=== PATIENT | female | born 1940 | race Caucasian/White ===

== ENCOUNTER 2018-05-19 14:34 | Inpatient (IN) | payer MEDICARE, OTHER, MEDICAID ==
[~2018-05-19] VITALS: Ht 149.9 cm; Wt 59.8 kg
[~2018-05-19 14:34] MED LIST: CEFAZOLIN 1,000 MG ONE; DEXAMETHASONE 4 MG/ML, 1ML ONE; ONDANSETRON 2MG/ML, 2ML ONE; PHENYLEPHRINE 10 MG/ML ONE; PROPOFOL 10 MG/ML, 20ML ONE; SUCCINYLCHOLINE 20 MG/ML, 10ML ONE
[2018-05-19] MEDS ORDERED: MORPHINE SULFATE 4 MG/ML, 1ML ONE ×2 (15:20→16:26)
[2018-05-19] MEDS ORDERED: ONDANSETRON 2MG/ML, 2ML ONE (15:20)
[2018-05-19] MEDS: MORPHINE SULFATE 4 MG/ML, 1ML IVPush PRN ×2 (15:22→16:28)
[2018-05-19] MEDS ORDERED: ONDANSETRON 2MG/ML, 2ML IVPush ONE (15:30)
[2018-05-19] MEDS ORDERED: BISM262T9 PO (16:56)
[2018-05-19] MEDS ORDERED: SITA50TA PO (16:56)
[2018-05-19] MEDS ORDERED: NIFE30TA15 PO (16:56)
[2018-05-19] MEDS ORDERED: FURO20TA3 PO (16:56)
[2018-05-19] MEDS ORDERED: LEVO88TA4 PO (16:56)
[2018-05-19] MEDS ORDERED: OXYC-307 PO (16:56)
[2018-05-19] MEDS ORDERED: LOSA1TAB19 PO (16:56)
[2018-05-19] MEDS ORDERED: DOCU-131 PO (16:56)
[2018-05-19] MEDS ORDERED: FLUT50DI NS (16:56)
[2018-05-19] MEDS ORDERED: LOSA1TAB2 PO (16:56)
[2018-05-19] MEDS ORDERED: DULO60CA55 PO (16:56)
[2018-05-19] MEDS ORDERED: ARIP5TAB13 PO (16:56)
[2018-05-19] MEDS ORDERED: BUDE10.2 PO (16:56)
[2018-05-19] MEDS ORDERED: TIOT18CA INH (16:56)
[2018-05-19] MEDS ORDERED: MAGN400O7 PO (16:56)
[2018-05-19] MEDS ORDERED: LAMO200T49 PO (16:56)
[2018-05-19] MEDS ORDERED: NA P133E2 PR (17:02)
[2018-05-19] MEDS ORDERED: DICL100G19 TP ×2 (17:02→17:06)
[2018-05-19] MEDS ORDERED: CHOL10003 PO (17:02)
[2018-05-19] MEDS ORDERED: CALC200T3 PO (17:02)
[2018-05-19] MEDS ORDERED: HYDROmorphone 2 MG/ML, 1ML ONE ×2 (18:03→21:38)
[2018-05-19] MEDS: HYDROmorphone 2 MG/ML, 1ML IVPush PRN ×2 (18:16→21:47)
[2018-05-19 19:20] LABS: BASOPHILS # (AUTO) 0.06 x10^3/uL (0-0.1); BASOPHILS % (AUTO) 0 % (0-1); EOSINOPHILS # (AUTO) 0.07 x10^3/uL (0-0.4); EOSINOPHILS % (AUTO) 0 % (1-7); LYMPHOCYTES % (AUTO) 10 % (22-44); MD NO; MEAN CORPUSCULAR HEMOGLOBIN 30.7 pg (27.0-34.8); MEAN CORPUSCULAR HGB CONC 33.4 g/dL (32.4-35.8); MEAN PLATELET VOLUME 6.9 fL (7.4-10.4); MONOCYTES # (AUTO) 0.77 x10^3/uL (0.2-0.8); MONOCYTES % (AUTO) 5 % (2-9); NEUTROPHILS # (AUTO) 14.28 x10^3/uL (1.8-6.8); NEUTROPHILS % (AUTO) 85 % (42-75); PLATELET COUNT 355 x10^3/uL (130-400); RED CELL DISTRIBUTION WIDTH 15.1 % (9.6-15.2)
[2018-05-19 19:29] LABS: INTERNATIONAL NORMALIZED RATIO 0.98 (0.93-1.1); PROTHROMBIN TIME 10.1 Seconds (9.6-11.5)
[2018-05-19] MEDS ORDERED: ACETAMINOPHEN 325 MG TABLET PO PRN ×2 (19:30→21:00)
[2018-05-19] MEDS ORDERED: ONDANSETRON 2MG/ML, 2ML IVPush PRN (19:30)
[2018-05-19] MEDS ORDERED: ONDANSETRON ODT 4 MG PO PRN (19:30)
[2018-05-19] MEDS ORDERED: morphine SULFATE 10 MG/ML, 1ML IVPush PRN (19:30)
[2018-05-19] MEDS ORDERED: hydrALAzine 20 MG/ML, 1ML IVPush PRN (19:30)
[2018-05-19 19:32] LABS: ALBUMIN 3.5 g/dL (3.4-5.0); ANION GAP 8 mmol/L (5-15); CHLORIDE 102 mmol/L (98-107)
[2018-05-19 19:36] LABS: TROPONIN I < 0.015 ng/mL (0.000-0.045)
[2018-05-19] MEDS ORDERED: FENTANYL PF 250 MCG/5ML ONE (20:24)
[2018-05-19] MEDS ORDERED: MIDAZOLAM 1 MG/ML, 2ML ONE (20:24)
[2018-05-19] MEDS ORDERED: CEFAZOLIN PMX 2GM/50ML 50 ML IV SCH (20:30)
[2018-05-19] MEDS ORDERED: HALOPERIDOL 5 MG/ML IV PRN (21:00)
[2018-05-19] MEDS ORDERED: hydrALAzine 20 MG/ML, 1ML IV PRN (21:00)
[2018-05-19] MEDS ORDERED: MEPERIDINE/PF 25MG/0.5ML IVPush PRN (21:00)
[2018-05-19] MEDS ORDERED: OXYcodone 5 MG/5 ML ORAL.SOL UDC PO PRN (21:00)
[2018-05-19] MEDS ORDERED: ALBUTEROL/IPRATROPIUM 2.5MG/0.5MG, 3 ML NPPB PRN ×2 (21:00→23:30)
[2018-05-19] MEDS ORDERED: FENTANYL PF 100 MCG/2ML ONE (21:23)
[2018-05-19] MEDS ORDERED: OXYcodone 5 MG/5 ML ORAL.SOL UDC ONE (21:24)
[2018-05-19] MEDS: FENTANYL PF 100 MCG/2ML IV PRN ×2 (21:27→21:33)
[2018-05-19] MEDS: LABETALOL 5MG/ML, 20ML IV PRN ×2 (21:32→21:51)
[2018-05-19] MEDS: HYDROmorphone 1 MG/ML, 1ML IV PRN ×2 (21:40→21:47)
[2018-05-19] MEDS ORDERED: IPRATROPIUM 0.5 MG/2.5 ML INHA ONE (22:58)
[2018-05-19] MEDS ORDERED: ALBUTEROL/IPRATROPIUM 2.5MG/0.5MG, 3 ML ONE (23:01)
[2018-05-20] MEDS: SODIUM CHLORIDE 0.9% 1,000 ML IV SCH ×2 (01:13→07:40)
[2018-05-20] MEDS: DULOXETINE 30 MG CAPSULE.DR PO SCH ×3 (01:14→20:34)
[2018-05-20] MEDS: LAMOTRIGINE 200 MG TABLET PO SCH ×3 (01:14→20:34)
[2018-05-20] MEDS: CALCIUM CARBONATE 500 MG TAB.CHEW PO SCH ×3 (01:14→20:32)
[2018-05-20] MEDS: DOCUSATE 100 MG CAPSULE PO SCH ×3 (01:14→20:33)
[2018-05-20] MEDS: INSULIN LISPRO 100 UNITS/ML, PEN SQ-INSULIN SCH ×5 (01:14→20:15)
[2018-05-20] MEDS: FLUTICASONE NASAL SPRAY 16GM NAS SCH ×3 (01:15→21:00)
[2018-05-20] MEDS: ALBUTEROL/IPRATROPIUM 2.5MG/0.5MG, 3 ML NPPB SCH ×4 (03:00→20:48)
[2018-05-20] MEDS: OXYcodone/APAP 10/325MG TABLET PO PRN ×4 (03:39→20:32)
[2018-05-20 04:15] LABS: MICROSCOPIC AUTO
[2018-05-20 04:16] LABS: CULTURE INDICATED? YES
[2018-05-20 04:17] VITALS: BP 135/57
[2018-05-20] MEDS: CEFAZOLIN PMX 2GM/50ML 50 ML IV SCH ×2 (04:46→12:07)
[2018-05-20 05:39] LABS: BASOPHILS # (AUTO) 0.02 x10^3/uL (0-0.1); BASOPHILS % (AUTO) 0 % (0-1); EOSINOPHILS % (AUTO) 0 % (1-7); LYMPHOCYTES # (AUTO) 0.48 x10^3/uL (1-3.4); LYMPHOCYTES % (AUTO) 4 % (22-44); MD NO; MEAN CORPUSCULAR HEMOGLOBIN 30.7 pg (27.0-34.8); MEAN CORPUSCULAR HGB CONC 33.4 g/dL (32.4-35.8); MEAN CORPUSCULAR VOLUME 91.9 fL (80-100); MEAN PLATELET VOLUME 8.1 fL (7.4-10.4); MONOCYTES % (AUTO) 2 % (2-9); NEUTROPHILS # (AUTO) 10.11 x10^3/uL (1.8-6.8); NEUTROPHILS % (AUTO) 94 % (42-75); PLATELET COUNT 279 x10^3/uL (130-400); RED BLOOD COUNT 3.71 x10^6/uL (3.82-5.3); RED CELL DISTRIBUTION WIDTH 15.1 % (9.6-15.2)
[2018-05-20 05:46] LABS: ANION GAP 8 mmol/L (5-15); CALCIUM 8.1 mg/dL (8.5-10.1); CHLORIDE 104 mmol/L (98-107)
[2018-05-20 05:48] LABS: CREATININE 1.11 mg/dL (0.55-1.02)
[2018-05-20] MEDS: LEVOTHYROXINE 88 MCG TABLET PO SCH ×2 (06:31→08:19)
[2018-05-20] MEDS: POLYETHYLENE GLYCOL 17 GM PACKET PO SCH (08:07)
[2018-05-20] MEDS: CHOLECALCIFEROL 1,000 UNIT TABLET PO SCH (08:14)
[2018-05-20 08:15] VITALS: BP 133/61
[2018-05-20] MEDS: LOSARTAN 50MG TABLET PO SCH (08:16)
[2018-05-20] MEDS: FUROSEMIDE 20 MG TABLET PO SCH (08:17)
[2018-05-20] MEDS: niFEDipine ER 30 MG TABLET.ER PO SCH (08:19)
[2018-05-20] MEDS: ARIPIPRAZOLE 5 MG TABLET PO SCH ×2 (08:22→20:42)
[2018-05-20] MEDS: ASPIRIN 81 MG TABLET CHEW PO SCH ×2 (08:32→20:33)
[2018-05-20] MEDS ORDERED: IPRATROPIUM 0.5 MG/2.5 ML INHA HHN SCH (09:00)
[2018-05-20] MEDS: FLUTICASONE/VILANTEROL 200-25MCG/INH INH SCH (09:00)
[2018-05-20] MEDS ORDERED: SITAGLIPTIN 25MG TABLET PO SCH (09:00)
[2018-05-20] MEDS ORDERED: HYDROCHLOROTHIAZIDE 12.5 MG CAPSULE PO SCH (09:00)
[2018-05-20] MEDS ORDERED: LEVOTHYROXINE 88 MCG TABLET PO SCH (09:00)
[2018-05-20] MEDS: METHOCARBAMOL 500 MG TABLET PO PRN (16:52)
[2018-05-20 20:29] VITALS: BP 145/66
[2018-05-21 02:25] VITALS: BP 147/66
[2018-05-21] MEDS: METHOCARBAMOL 500 MG TABLET PO PRN ×2 (02:25→11:23)
[2018-05-21] MEDS: OXYcodone/APAP 10/325MG TABLET PO PRN ×4 (02:25→15:17)
[2018-05-21 05:33] LABS: BASOPHILS # (AUTO) 0.04 x10^3/uL (0-0.1); BASOPHILS % (AUTO) 0 % (0-1); EOSINOPHILS # (AUTO) 0.18 x10^3/uL (0-0.4); EOSINOPHILS % (AUTO) 2 % (1-7); LYMPHOCYTES # (AUTO) 1.32 x10^3/uL (1-3.4); LYMPHOCYTES % (AUTO) 14 % (22-44); MD NO; MEAN CORPUSCULAR HEMOGLOBIN 30.9 pg (27.0-34.8); MEAN CORPUSCULAR HGB CONC 33.3 g/dL (32.4-35.8); MEAN CORPUSCULAR VOLUME 92.8 fL (80-100); MEAN PLATELET VOLUME 7.4 fL (7.4-10.4); MONOCYTES # (AUTO) 0.62 x10^3/uL (0.2-0.8); MONOCYTES % (AUTO) 6 % (2-9); NEUTROPHILS % (AUTO) 78 % (42-75); PLATELET COUNT 318 x10^3/uL (130-400); RED BLOOD COUNT 3.67 x10^6/uL (3.82-5.3); RED CELL DISTRIBUTION WIDTH 15.1 % (9.6-15.2)
[2018-05-21 05:40] LABS: ALBUMIN 2.9 g/dL (3.4-5.0); ANION GAP 7 mmol/L (5-15); CALCIUM 8.6 mg/dL (8.5-10.1); CHLORIDE 107 mmol/L (98-107)
[2018-05-21] MEDS: INSULIN LISPRO 100 UNITS/ML, PEN SQ-INSULIN SCH ×3 (07:00→16:00)
[2018-05-21 07:32] VITALS: BP 161/71
[2018-05-21] MEDS ORDERED: niFEDipine ER 90 MG TAB.ER.24 ONE (08:54)
[2018-05-21] MEDS: DULOXETINE 30 MG CAPSULE.DR PO SCH ×2 (08:59→23:59)
[2018-05-21] MEDS: FLUTICASONE/VILANTEROL 200-25MCG/INH INH SCH (09:00)
[2018-05-21] MEDS: LINAGLIPTIN 5 MG TAB PO SCH (09:00)
[2018-05-21] MEDS: FLUTICASONE NASAL SPRAY 16GM NAS SCH ×2 (09:00→21:00)
[2018-05-21] MEDS: DOCUSATE 100 MG CAPSULE PO SCH ×2 (09:00→23:58)
[2018-05-21] MEDS: FUROSEMIDE 20 MG TABLET PO SCH (09:01)
[2018-05-21] MEDS: LEVOTHYROXINE 88 MCG TABLET PO SCH (09:02)
[2018-05-21] MEDS: LAMOTRIGINE 200 MG TABLET PO SCH ×2 (09:02→23:58)
[2018-05-21] MEDS: ASPIRIN 81 MG TABLET CHEW PO SCH ×2 (09:05→23:59)
[2018-05-21] MEDS: LOSARTAN 50MG TABLET PO SCH (09:06)
[2018-05-21] MEDS: CHOLECALCIFEROL 1,000 UNIT TABLET PO SCH (09:06)
[2018-05-21] MEDS: CALCIUM CARBONATE 500 MG TAB.CHEW PO SCH ×2 (09:07→23:58)
[2018-05-21] MEDS: POLYETHYLENE GLYCOL 17 GM PACKET PO SCH (09:08)
[2018-05-21] MEDS: niFEDipine ER 30 MG TABLET.ER PO SCH (09:09)
[2018-05-21] MEDS: ALBUTEROL/IPRATROPIUM 2.5MG/0.5MG, 3 ML NPPB SCH ×3 (09:50→19:41)
[2018-05-21 12:48] VITALS: BP 127/70
[2018-05-21 18:42] VITALS: BP 122/67
[2018-05-21] MEDS ORDERED: ATORVASTATIN 20 MG TABLET PO SCH (21:00)
[2018-05-22] MEDS: ARIPIPRAZOLE 5 MG TABLET PO SCH (00:12)
[2018-05-22] MEDS: INSULIN LISPRO 100 UNITS/ML, PEN SQ-INSULIN SCH ×4 (00:13→16:00)
[2018-05-22] MEDS: OXYcodone/APAP 10/325MG TABLET PO PRN ×4 (00:46→17:21)
[2018-05-22] MEDS: METHOCARBAMOL 500 MG TABLET PO PRN (00:46)
[2018-05-22] MEDS: ALBUTEROL/IPRATROPIUM 2.5MG/0.5MG, 3 ML NPPB SCH ×3 (02:41→15:20)
[2018-05-22] MEDS: LEVOTHYROXINE 88 MCG TABLET PO SCH (06:40)
[2018-05-22] MEDS ORDERED: ATOR20TA9 PO (07:20)
[2018-05-22] MEDS ORDERED: ASPI-515 PO (07:20)
[2018-05-22 07:37] VITALS: BP 150/71
[2018-05-22] MEDS: DULOXETINE 30 MG CAPSULE.DR PO SCH (08:31)
[2018-05-22] MEDS: LOSARTAN 50MG TABLET PO SCH (08:31)
[2018-05-22] MEDS: FLUTICASONE/VILANTEROL 200-25MCG/INH INH SCH (08:31)
[2018-05-22] MEDS: DOCUSATE 100 MG CAPSULE PO SCH (08:31)
[2018-05-22] MEDS: FLUTICASONE NASAL SPRAY 16GM NAS SCH (08:31)
[2018-05-22] MEDS: ASPIRIN 81 MG TABLET CHEW PO SCH (08:31)
[2018-05-22] MEDS: POLYETHYLENE GLYCOL 17 GM PACKET PO SCH (08:32)
[2018-05-22] MEDS: LAMOTRIGINE 200 MG TABLET PO SCH (08:32)
[2018-05-22] MEDS: FUROSEMIDE 20 MG TABLET PO SCH (08:32)
[2018-05-22] MEDS: LINAGLIPTIN 5 MG TAB PO SCH (08:33)
[2018-05-22] MEDS: CHOLECALCIFEROL 1,000 UNIT TABLET PO SCH (08:33)
[2018-05-22] MEDS: CALCIUM CARBONATE 500 MG TAB.CHEW PO SCH (08:33)
[2018-05-22] MEDS: niFEDipine ER 30 MG TABLET.ER PO SCH (08:33)
[2018-05-22] MEDS ORDERED: TRAM50TA2 PO (09:04)
[2018-05-22] MEDS ORDERED: OXYC5CAP2 PO (09:04)
[2018-05-22] MEDS ORDERED: BISACODYL 10 MG SUPP PR PRN (10:00)
[2018-05-22] MEDS ORDERED: MAGNESIUM HYDROXIDE 8%, 30ML UDC PO PRN (10:00)
[2018-05-22 12:52] VITALS: BP 115/64
== END 2018-05-22 17:36 | DRG 481 ==
LOC: SUATTDRO 19:09 → ED 19:39 → EDIP 20:00 → 4NOR 22:43
PROVIDERS: ADMIT Hospitalist; ATTEND Hospitalist
PROC: 0QH634Z Insertion of Internal Fixation Device into Right Upper Femur, Percutaneous Approach (ICD-10-PCS; principal; 2018-05-19 20:30)
DX: S72.011A Unspecified intracapsular fracture of right femur, initial encounter for closed fracture (principal); R71.0 Precipitous drop in hematocrit; E78.5 Hyperlipidemia, unspecified; E11.51 Type 2 diabetes mellitus with diabetic peripheral angiopathy without gangrene; Z66 Do not resuscitate; M41.9 Scoliosis, unspecified; I25.10 Atherosclerotic heart disease of native coronary artery without angina pectoris; G89.29 Other chronic pain; E03.9 Hypothyroidism, unspecified; J44.9 Chronic obstructive pulmonary disease, unspecified; I10 Essential (primary) hypertension; F41.9 Anxiety disorder, unspecified; F32.9 Major depressive disorder, single episode, unspecified; W01.0XXA Fall on same level from slipping, tripping and stumbling without subsequent striking against object, initial encounter; E78.00 Pure hypercholesterolemia, unspecified; Z88.8 Allergy status to other drugs, medicaments and biological substances; Z95.1 Presence of aortocoronary bypass graft; Z90.710 Acquired absence of both cervix and uterus; Z90.2 Acquired absence of lung [part of]; Z79.82 Long term (current) use of aspirin; Z85.118 Personal history of other malignant neoplasm of bronchus and lung; Z88.5 Allergy status to narcotic agent; Z88.2 Allergy status to sulfonamides; Z91.040 Latex allergy status; Y93.89 Activity, other specified; Y99.8 Other external cause status; Y92.129 Unspecified place in nursing home as the place of occurrence of the external cause; Z79.899 Other long term (current) drug therapy
CPT/HCPCS: 36415; 71045; 72110; 76000; 80048; 81001; 82040; 82962; 83735; 84100; 84484; 85025; 85610; 85730; 87086; 90656; 93005; 94640; 96374; C1713; G0378; J0690; J1100; J1170; J2250; J2405; J2704; J3010; J7620; J0330; J1815; J2370; J7030

== ENCOUNTER 2018-07-21 11:46 | Inpatient (IN) | payer MEDICARE, OTHER, MEDICAID ==
[~2018-07-21] VITALS: Ht 149.9 cm; Wt 53.0 kg
[~2018-07-21 11:46] MED LIST changes: +ARIP5TAB13 PO; +ASPI-515 PO; +ATOR20TA37 PO; +BISM262T9 PO; +BUDE10.2 PO; +CALC200T3 PO; -CEFAZOLIN 1,000 MG ONE; +CHOL10003 PO; -DEXAMETHASONE 4 MG/ML, 1ML ONE; +DICL100G19 TP; +DOCU-131 PO; +DULO60CA55 PO; +FLUT50DI NS; +FURO20TA3 PO; +LAMO200T49 PO; +LEVO88TA4 PO; +LOSA1TAB19 PO; +LOSA1TAB2 PO; +MAGN400O7 PO; +NA P133E2 PR; +NIFE30TA15 PO; -ONDANSETRON 2MG/ML, 2ML ONE; +OXYC-307 PO; +OXYC5CAP2 PO; -PHENYLEPHRINE 10 MG/ML ONE; -PROPOFOL 10 MG/ML, 20ML ONE; +SITA50TA PO; -SUCCINYLCHOLINE 20 MG/ML, 10ML ONE; +TIOT18CA INH; +TRAM50TA2 PO
--- NOTE | 2018-07-21 11:50 | NUR ---
PT BIB [facility] FROM [facility] FOR ABD PAIN X5 DAYS AND CONSTIPATION X3. IV IN PLACE ON ARRIVAL, 4 ZOFRAN AND 500ML NS GIVEN IN ROUTE. CONNECTED TO ALL MONITORING, TACHY HR 102, RAPID RESP RATE WITH SATS 79% ON RA, O2 APPLIED, SLIGHT HTN. PT A&OX4, DROWSY. MD TO BEDSIDE, CALL LIGHT WITHIN REACH. AWAITING ORDERS AT THIS TIME
--- NOTE | 2018-07-21 12:19 | NUR ---
[facility] L[facility] UA COLLECTED AND SENT TO LAB. LABS COLLECTED. AWAITING RAD AND RESULTS AT THIS TIME. CALL LIGHT WITHIN REACH
[2018-07-21 12:27] LABS: MEAN CORPUSCULAR HEMOGLOBIN 29.6 pg (27.0-34.8); MEAN CORPUSCULAR VOLUME 89.7 fL (80-100); MEAN PLATELET VOLUME 9.3 fL (7.4-10.4); PLATELET COUNT 490 x10^3/uL (130-400); RED BLOOD COUNT 4.45 x10^6/uL (3.82-5.3)
--- NOTE | 2018-07-21 12:34 | NUR ---
PT TAKEN TO RAD
[2018-07-21 12:36] LABS: CHLORIDE 88 mmol/L (98-107)
[2018-07-21 12:37] LABS: TROPONIN I < 0.015 ng/mL (0.000-0.045)
[2018-07-21 12:38] LABS: INTERNATIONAL NORMALIZED RATIO 0.99 (0.93-1.1); PROTHROMBIN TIME 10.5 Seconds (9.6-11.5)
[2018-07-21 12:45] LABS: MICROSCOPIC AUTO
[2018-07-21 12:46] LABS: ALANINE AMINOTRANSFERASE 20 U/L (12-78); ALBUMIN 3.1 g/dL (3.4-5.0); ALKALINE PHOSPHATASE 164 U/L (45-117); ANION GAP 14 mmol/L (5-15); BILIRUBIN,TOTAL 0.5 mg/dL (0.2-1.0); CALCIUM 9.3 mg/dL (8.5-10.1); CREATININE 1.75 mg/dL (0.55-1.02); MD YES; TOTAL PROTEIN 8.1 g/dL (6.4-8.2)
[2018-07-21 12:47] LABS: CULTURE INDICATED? NO
[2018-07-21 12:48] LABS: BASOS#(MANUAL) 0.14 x10^3/uL (0-0.1); BASOS% (MANUAL) 1 % (0-1)
[2018-07-21 12:49] LABS: ANISOCYTOSIS 1+; BAND#(MANUAL) 1.23 x10^3/uL; BANDS%(MANUAL) 9 % (0-7); LYMPH#(MANUAL) 0.96 x10^3/uL (1-3.4); LYMPHS% (MANUAL) 7 % (22-44); MONOS#(MANUAL) 1.51 x10^3/uL (0.3-2.7); MONOS% (MANUAL) 11 % (2-9); SEG#(MANUAL) 9.86 x10^3/uL (1.8-6.8); SEGS% (MANUAL) 72 % (42-75)
[2018-07-21 12:50] LABS: <PLATELET ESTIMATE> INCREASED; <PLT MORPHOLOGY> NORMAL PLT MORPH; POLYCHROMASIA 1+
--- NOTE | 2018-07-21 12:54 | NUR ---
ALL RESULTS BACK AT THIS TIME, CHART UP FOR RECHECK
--- NOTE | 2018-07-21 13:13 | NUR ---
MD TO BEDSIDE TO UPDATE PT ON POC
[2018-07-21] MEDS ORDERED: BENZOCAINE AEROSOL SPRAY 20%, 60ML ONE (13:49)
--- NOTE | 2018-07-21 14:07 | NUR ---
REPORT GIVEN TO CROW RN, PT READY FOR TRANSPORT
[2018-07-21 14:45] VITALS: BP 144/58
[2018-07-21] MEDS ORDERED: SODIUM CHLORIDE 0.9% 1,000 ML IV SCH (15:48)
[2018-07-21] MEDS ORDERED: PHARMACY MAY ADJ FOR RENAL FX MC SCH (16:00)
[2018-07-21] MEDS ORDERED: BISACODYL 10 MG SUPP PR PRN (16:00)
[2018-07-21] MEDS ORDERED: IPRATROPIUM 0.5 MG/2.5 ML INHA HHN SCH (16:00)
[2018-07-21] MEDS ORDERED: GLUCAGON 1 MG IM PRN (16:00)
[2018-07-21] MEDS ORDERED: SODIUM CHLORIDE 0.9% 1,000ML IV ONE (16:00)
[2018-07-21] MEDS ORDERED: ENOXAPARIN 40 MG/0.4 ML SQ SCH (16:00)
[2018-07-21] MEDS ORDERED: DEXTROSE 4 GM TAB.CHEW PO PRN (16:00)
[2018-07-21] MEDS ORDERED: INSULIN REGULAR 100 UNITS/ML, 3ML VIAL SQ-INSULIN SCH (16:00)
[2018-07-21] MEDS ORDERED: LEVOFLOXACIN/PMX 500MG/100ML 100 ML IV SCH (16:00)
[2018-07-21] MEDS ORDERED: ONDANSETRON ODT 4 MG PO PRN (16:00)
[2018-07-21] MEDS ORDERED: DEXTROSE 50%, 50ML SYRINGE IVPush PRN (16:00)
[2018-07-21] MEDS: METRONIDAZOLE PMX 500MG/100ML 100 ML IV SCH (17:00)
[2018-07-21] MEDS: morphine SULFATE 10 MG/ML, 1ML IV PRN ×2 (17:00→20:22)
[2018-07-21] MEDS ORDERED: ENOXAPARIN 30 MG/0.3 ML ONE (18:18)
[2018-07-21] MEDS ORDERED: ENOXAPARIN 30 MG/0.3 ML SQ SCH (19:00)
[2018-07-21 20:12] VITALS: BP 109/64
[2018-07-21] MEDS: IPRATROPIUM 0.5 MG/2.5 ML INHA HHN SCH (21:00)
[2018-07-21] MEDS ORDERED: ALBUTEROL SULFATE 2.5 MG/3 ML NPPB PRN (21:30)
[2018-07-21] MEDS ORDERED: KETOROLAC 30 MG/1 ML IV PRN (21:30)
[2018-07-21] MEDS ORDERED: OXYcodone 5 MG/5 ML ORAL.SOL UDC PO PRN (21:30)
[2018-07-21] MEDS ORDERED: MEPERIDINE/PF 25MG/0.5ML IVPush PRN (21:30)
[2018-07-21] MEDS ORDERED: DIAZEPAM 5 MG/ML, 2ML IVPush PRN (21:30)
[2018-07-21] MEDS ORDERED: LABETALOL 5MG/ML, 20ML IV PRN (21:30)
[2018-07-21] MEDS ORDERED: PROMETHAZINE 25 MG/ML, 1ML IV PRN (21:30)
[2018-07-21] MEDS ORDERED: HYDROmorphone 2 MG/ML, 1ML IVPush PRN (21:30)
[2018-07-21] MEDS ORDERED: FENTANYL PF 100 MCG/2ML IV PRN (21:30)
[2018-07-21] MEDS ORDERED: hydrALAzine 20 MG/ML, 1ML IV PRN (21:30)
[2018-07-21] MEDS ORDERED: ACETAMINOPHEN 325 MG TABLET PO PRN (21:30)
[2018-07-21] MEDS ORDERED: NOREPINEPHRINE 1 MG/ML, 4ML ONE (21:47)
[2018-07-21] MEDS ORDERED: FENTANYL PF 250 MCG/5ML ONE (21:56)
[2018-07-21] MEDS ORDERED: CEFOTETAN 2 GM ONE (22:03)
[2018-07-21] MEDS ORDERED: ETOMIDATE 40 MG/20 ML ONE (22:03)
[2018-07-21] MEDS ORDERED: ROCURONIUM 10MG/ML,5ML ONE (22:03)
[2018-07-21] MEDS ORDERED: SUCCINYLCHOLINE 20 MG/ML, 10ML ONE (22:03)
[2018-07-21] MEDS ORDERED: PROPOFOL 100 ML IV ONE (23:22)
[2018-07-22] MEDS ORDERED: ACETAMINOPHEN 650 MG SUPP PR PRN (00:30)
[2018-07-22] MEDS ORDERED: LACTATED RINGERS 500 ML IV PRN (00:30)
[2018-07-22] MEDS ORDERED: D5%-0.9% NACL+KCL 20MEQ 1,000 ML IV SCH (00:30)
[2018-07-22] MEDS ORDERED: ENALAPRILAT 1.25 MG/ML, 2ML IV PRN (00:30)
[2018-07-22] MEDS ORDERED: LIDOCAINE-MPF 1%, 2ML ENDO PRN (00:30)
[2018-07-22] MEDS ORDERED: DIPHENHYDRAMINE 50 MG/ML, 1ML IV PRN (00:30)
[2018-07-22] MEDS ORDERED: PIPERACILLIN/TAZO/PMX 3.375GM 50 ML IV SCH (00:30)
[2018-07-22] MEDS ORDERED: ACETAMINOPHEN 325 MG TABLET PO PRN (00:30)
[2018-07-22] MEDS ORDERED: LACTATED RINGERS 75 ML IV SCH (00:30)
[2018-07-22] MEDS ORDERED: PHARMACY MAY ADJ FOR RENAL FX MC SCH (00:30)
[2018-07-22] MEDS ORDERED: DIPHENHYDRAMINE 25 MG CAPSULE PO PRN (00:30)
[2018-07-22] MEDS: SODIUM CHLORIDE FLUSH 10ML SYR IVF SCH ×3 (01:23→21:40)
[2018-07-22] MEDS: CEFOTETAN PMX 1GM/50ML 50 ML IVPB SCH ×2 (01:29→12:21)
[2018-07-22] MEDS: METRONIDAZOLE PMX 500MG/100ML 100 ML IV SCH ×2 (02:12→10:32)
[2018-07-22] MEDS: INSULIN REGULAR 100 UNITS/ML, 3ML VIAL SQ-INSULIN SCH ×4 (02:36→21:00)
[2018-07-22] MEDS: IPRATROPIUM 0.5 MG/2.5 ML INHA HHN SCH ×4 (03:00→21:00)
[2018-07-22 04:00] VITALS: BP 116/38
[2018-07-22] MEDS ORDERED: MORPHINE SULFATE 4 MG/ML, 1ML ONE ×2 (04:55→05:59)
[2018-07-22] MEDS: morphine SULFATE 10 MG/ML, 1ML IV PRN ×3 (05:03→09:12)
[2018-07-22 05:45] LABS: MEAN CORPUSCULAR HEMOGLOBIN 29.5 pg (27.0-34.8); MEAN CORPUSCULAR HGB CONC 32.9 g/dL (32.4-35.8); MEAN CORPUSCULAR VOLUME 89.6 fL (80-100); MEAN PLATELET VOLUME 8.5 fL (7.4-10.4); PLATELET COUNT 415 x10^3/uL (130-400); RED BLOOD COUNT 3.34 x10^6/uL (3.82-5.3); RED CELL DISTRIBUTION WIDTH 14.2 % (9.6-15.2)
[2018-07-22 05:53] LABS: ALANINE AMINOTRANSFERASE 15 U/L (12-78); ALBUMIN 2.1 g/dL (3.4-5.0); ANION GAP 10 mmol/L (5-15); CALCIUM 8.1 mg/dL (8.5-10.1); CHLORIDE 92 mmol/L (98-107); CREATININE 2.11 mg/dL (0.55-1.02)
[2018-07-22 05:55] LABS: ALKALINE PHOSPHATASE 107 U/L (45-117); BILIRUBIN,TOTAL 0.2 mg/dL (0.2-1.0); TOTAL PROTEIN 5.9 g/dL (6.4-8.2)
[2018-07-22 06:00] LABS: MD YES
[2018-07-22 06:03] LABS: ANISOCYTOSIS 1+; BANDS%(MANUAL) 22 % (0-7); EOS#(MANUAL) 0.11 x10^3/uL (0.0-0.4); EOS% (MANUAL) 1 % (1-7); LYMPH#(MANUAL) 0.98 x10^3/uL (1-3.4); LYMPHS% (MANUAL) 9 % (22-44); METAMYELOCYTES# (MANUAL) 0.11 x10^3/uL (0-0); METAMYELOCYTES% (MANUAL) 1 % (0-1); MONOS#(MANUAL) 0.33 x10^3/uL (0.3-2.7); MONOS% (MANUAL) 3 % (2-9); MYELOCYTES# (MANUAL) 0.11 x10^3/uL (0-0); MYELOCYTES% (MANUAL) 1 % (0-0); POLYCHROMASIA 1+; SEG#(MANUAL) 6.87 x10^3/uL (1.8-6.8); SEGS% (MANUAL) 63 % (42-75)
[2018-07-22 06:04] LABS: <PLATELET ESTIMATE> INCREASED; LARGE PLATELETS 1+
[2018-07-22] MEDS: PANTOPRAZOLE 40 MG IV IV SCH (08:04)
[2018-07-22] MEDS: PROPOFOL 100 ML IV PRN ×2 (08:05→20:51)
[2018-07-22] MEDS ORDERED: FENTANYL PF 2,500 MCG in SODIUM CHLORIDE 0.9% 200 ML IV PRN (09:30)
[2018-07-22] MEDS: NS + 20MEQ KCL 1,000 ML IV SCH ×2 (11:24→23:15)
[2018-07-22] MEDS: LEVOTHYROXINE 100 MCG INJ IVPush SCH (13:00)
[2018-07-22] MEDS ORDERED: FENTANYL PF 250 MCG/5ML ONE (15:42)
[2018-07-22] MEDS ORDERED: PHENYLEPHRINE 10 MG/ML ONE (16:08)
[2018-07-22] MEDS ORDERED: ROCURONIUM 10 MG/ML,10ML ONE (16:08)
[2018-07-22] MEDS: hydrALAzine 20 MG/ML, 1ML IV PRN (19:39)
[2018-07-22] MEDS: HEPARIN 5,000 UNITS/ML, 1ML SQ SCH (21:39)
[2018-07-23] MEDS: IPRATROPIUM 0.5 MG/2.5 ML INHA HHN SCH ×4 (02:18→18:57)
[2018-07-23] MEDS: INSULIN REGULAR 100 UNITS/ML, 3ML VIAL SQ-INSULIN SCH ×4 (03:00→20:52)
[2018-07-23 04:26] VITALS: BP 146/50
[2018-07-23 04:33] LABS: MEAN CORPUSCULAR HEMOGLOBIN 29.6 pg (27.0-34.8); MEAN CORPUSCULAR HGB CONC 32.7 g/dL (32.4-35.8); MEAN CORPUSCULAR VOLUME 90.6 fL (80-100); MEAN PLATELET VOLUME 8.2 fL (7.4-10.4); PLATELET COUNT 401 x10^3/uL (130-400); RED BLOOD COUNT 3.56 x10^6/uL (3.82-5.3); RED CELL DISTRIBUTION WIDTH 14.4 % (9.6-15.2)
[2018-07-23 04:40] LABS: ANION GAP 10 mmol/L (5-15); CALCIUM 7.6 mg/dL (8.5-10.1); CHLORIDE 103 mmol/L (98-107); CREATININE 1.32 mg/dL (0.55-1.02)
[2018-07-23 05:11] LABS: MD YES
[2018-07-23 05:13] LABS: <PLATELET ESTIMATE> INCREASED; ANISOCYTOSIS 1+; BAND#(MANUAL) 1.79 x10^3/uL; BANDS%(MANUAL) 11 % (0-7); LARGE PLATELETS 1+; LYMPH#(MANUAL) 0.98 x10^3/uL (1-3.4); LYMPHS% (MANUAL) 6 % (22-44); METAMYELOCYTES# (MANUAL) 0.65 x10^3/uL (0-0); METAMYELOCYTES% (MANUAL) 4 % (0-1); MONOS#(MANUAL) 0.16 x10^3/uL (0.3-2.7); MONOS% (MANUAL) 1 % (2-9); POLYCHROMASIA 1+; SEG#(MANUAL) 12.71 x10^3/uL (1.8-6.8); SEGS% (MANUAL) 78 % (42-75)
[2018-07-23] MEDS: HEPARIN 5,000 UNITS/ML, 1ML SQ SCH ×3 (05:32→20:51)
[2018-07-23] MEDS: LEVOTHYROXINE 100 MCG INJ IVPush SCH (09:32)
[2018-07-23] MEDS: PANTOPRAZOLE 40 MG IV IV SCH (09:32)
[2018-07-23] MEDS: SODIUM CHLORIDE FLUSH 10ML SYR IVF SCH ×2 (09:32→20:51)
[2018-07-23] MEDS: NS + 20MEQ KCL 1,000 ML IV SCH ×2 (11:54→20:51)
[2018-07-23] MEDS: morphine SULFATE 10 MG/ML, 1ML IV PRN ×2 (13:47→21:06)
[2018-07-24] MEDS: IPRATROPIUM 0.5 MG/2.5 ML INHA HHN SCH ×2 (03:00→06:45)
[2018-07-24] MEDS: INSULIN REGULAR 100 UNITS/ML, 3ML VIAL SQ-INSULIN SCH ×3 (03:31→15:00)
[2018-07-24 04:51] VITALS: BP 127/47
[2018-07-24 04:59] LABS: MEAN CORPUSCULAR HEMOGLOBIN 29.7 pg (27.0-34.8); MEAN CORPUSCULAR HGB CONC 33.2 g/dL (32.4-35.8); MEAN CORPUSCULAR VOLUME 89.5 fL (80-100); MEAN PLATELET VOLUME 7.8 fL (7.4-10.4); PLATELET COUNT 355 x10^3/uL (130-400); RED BLOOD COUNT 3.25 x10^6/uL (3.82-5.3); RED CELL DISTRIBUTION WIDTH 14.4 % (9.6-15.2)
[2018-07-24 05:08] LABS: ANION GAP 7 mmol/L (5-15); CALCIUM 6.7 mg/dL (8.5-10.1); CHLORIDE 113 mmol/L (98-107); CREATININE 0.73 mg/dL (0.55-1.02)
[2018-07-24 05:36] LABS: MD YES
[2018-07-24 05:38] LABS: BAND#(MANUAL) 1.16 x10^3/uL; BANDS%(MANUAL) 6 % (0-7); LYMPH#(MANUAL) 1.93 x10^3/uL (1-3.4); LYMPHS% (MANUAL) 10 % (22-44); METAMYELOCYTES# (MANUAL) 0.19 x10^3/uL (0-0); METAMYELOCYTES% (MANUAL) 1 % (0-1); MONOS#(MANUAL) 0.58 x10^3/uL (0.3-2.7); MONOS% (MANUAL) 3 % (2-9); MYELOCYTES# (MANUAL) 0.58 x10^3/uL (0-0); MYELOCYTES% (MANUAL) 3 % (0-0); SEG#(MANUAL) 14.86 x10^3/uL (1.8-6.8); SEGS% (MANUAL) 77 % (42-75)
[2018-07-24 05:39] LABS: ANISOCYTOSIS 1+
[2018-07-24 05:40] LABS: <PLATELET ESTIMATE> ADEQUATE; <PLT MORPHOLOGY> NORMAL PLT MORPH
[2018-07-24] MEDS: HEPARIN 5,000 UNITS/ML, 1ML SQ SCH ×3 (05:40→23:55)
[2018-07-24] MEDS: NS + 20MEQ KCL 1,000 ML IV SCH (07:56)
[2018-07-24] MEDS: PIPERACILLIN/TAZO/PMX 3.375GM 50 ML IV SCH ×3 (07:57→21:02)
[2018-07-24] MEDS ORDERED: LEVOTHYROXINE 88 MCG TABLET PO ONE (09:00)
[2018-07-24] MEDS: DULOXETINE 30 MG CAPSULE.DR PO SCH ×2 (09:00→23:54)
[2018-07-24] MEDS ORDERED: FLUTICASONE PROPIONATE NS SCH (09:00)
[2018-07-24] MEDS ORDERED: TEMPLATE NON-FORMULARY MED. (Budesonide/Formoterol Fumarate (Symbicort 160-4.5 Mcg Inhaler PO SCH (09:00)
[2018-07-24] MEDS ORDERED: FLOVENT DISKUS MC SCH (09:30)
[2018-07-24] MEDS: LAMOTRIGINE 200 MG TABLET PO SCH ×2 (09:54→23:54)
[2018-07-24] MEDS: ASPIRIN 81 MG TABLET EC PO SCH ×2 (09:55→23:55)
[2018-07-24] MEDS: PANTOPRAZOLE 40 MG IV IV SCH (09:55)
[2018-07-24] MEDS: SODIUM CHLORIDE FLUSH 10ML SYR IVF SCH ×2 (09:55→23:56)
[2018-07-24] MEDS: CHOLECALCIFEROL 1,000 UNIT TABLET PO SCH (09:55)
[2018-07-24] MEDS: BUDESONIDE 0.5 MG/2 ML INHA HHN SCH ×2 (14:20→20:16)
[2018-07-24] MEDS: ALBUTEROL SULFATE 2.5 MG/3 ML HHN SCH ×3 (14:20→20:17)
[2018-07-24 15:33] VITALS: BP 130/59
[2018-07-24 20:00] VITALS: BP 138/62
[2018-07-24] MEDS ORDERED: FLUTICASONE PROPIONATE IH SCH (21:00)
[2018-07-24] MEDS: ARIPIPRAZOLE 5 MG TABLET PO SCH (23:54)
[2018-07-24] MEDS: ATORVASTATIN 20 MG TABLET PO SCH (23:54)
[2018-07-25] MEDS: INSULIN REGULAR 100 UNITS/ML, 3ML VIAL SQ-INSULIN SCH ×5 (00:09→21:00)
[2018-07-25 01:55] VITALS: BP 143/62
[2018-07-25] MEDS: PIPERACILLIN/TAZO/PMX 3.375GM 50 ML IV SCH ×4 (03:21→21:12)
[2018-07-25 05:34] LABS: MEAN CORPUSCULAR HEMOGLOBIN 29.2 pg (27.0-34.8); MEAN CORPUSCULAR HGB CONC 32.6 g/dL (32.4-35.8); MEAN CORPUSCULAR VOLUME 89.8 fL (80-100); MEAN PLATELET VOLUME 7.5 fL (7.4-10.4); PLATELET COUNT 374 x10^3/uL (130-400); RED BLOOD COUNT 3.07 x10^6/uL (3.82-5.3); RED CELL DISTRIBUTION WIDTH 14.7 % (9.6-15.2)
[2018-07-25 05:48] LABS: ANION GAP 8 mmol/L (5-15); CALCIUM 7.7 mg/dL (8.5-10.1); CHLORIDE 114 mmol/L (98-107)
[2018-07-25 05:51] LABS: CREATININE 0.74 mg/dL (0.55-1.02); TRIGLYCERIDES 198 mg/dL (50-200)
[2018-07-25 06:24] LABS: MD YES
[2018-07-25 06:26] LABS: BAND#(MANUAL) 0.83 x10^3/uL; BANDS%(MANUAL) 4 % (0-7); EOS#(MANUAL) 0.21 x10^3/uL (0.0-0.4); EOS% (MANUAL) 1 % (1-7); LYMPH#(MANUAL) 1.24 x10^3/uL (1-3.4); LYMPHS% (MANUAL) 6 % (22-44); METAMYELOCYTES# (MANUAL) 1.04 x10^3/uL (0-0); METAMYELOCYTES% (MANUAL) 5 % (0-1); MONOS#(MANUAL) 1.24 x10^3/uL (0.3-2.7); MONOS% (MANUAL) 6 % (2-9); MYELOCYTES# (MANUAL) 0.62 x10^3/uL (0-0); MYELOCYTES% (MANUAL) 3 % (0-0); SEG#(MANUAL) 15.53 x10^3/uL (1.8-6.8); SEGS% (MANUAL) 75 % (42-75)
[2018-07-25 06:27] LABS: <PLATELET ESTIMATE> ADEQUATE; <PLT MORPHOLOGY> NORMAL PLT MORPH; ANISOCYTOSIS 1+
[2018-07-25] MEDS: ALBUTEROL SULFATE 2.5 MG/3 ML HHN SCH ×3 (07:53→20:42)
[2018-07-25] MEDS: BUDESONIDE 0.5 MG/2 ML INHA HHN SCH ×2 (07:53→20:42)
[2018-07-25 07:58] VITALS: BP 150/61
[2018-07-25] MEDS: HEPARIN 5,000 UNITS/ML, 1ML SQ SCH ×2 (08:02→15:30)
[2018-07-25] MEDS: SODIUM CHLORIDE FLUSH 10ML SYR IVF SCH ×2 (09:00→21:33)
[2018-07-25] MEDS: CHOLECALCIFEROL 1,000 UNIT TABLET PO SCH (09:05)
[2018-07-25] MEDS: LAMOTRIGINE 200 MG TABLET PO SCH (09:05)
[2018-07-25] MEDS: PANTOPRAZOLE 40 MG IV IV SCH (09:05)
[2018-07-25] MEDS: DULOXETINE 30 MG CAPSULE.DR PO SCH (09:05)
[2018-07-25] MEDS: ASPIRIN 81 MG TABLET EC PO SCH ×2 (09:06→21:00)
[2018-07-25 13:59] VITALS: BP 142/56
[2018-07-25] MEDS: DEXTROSE 5% 1,000 ML IV SCH (14:16)
[2018-07-25 21:05] VITALS: BP 185/47
[2018-07-25] MEDS: hydrALAzine 20 MG/ML, 1ML IV PRN (21:13)
[2018-07-26] MEDS: LAMOTRIGINE 200 MG TABLET PO SCH ×3 (00:06→23:41)
[2018-07-26] MEDS: ARIPIPRAZOLE 5 MG TABLET PO SCH ×2 (00:06→23:41)
[2018-07-26] MEDS: ATORVASTATIN 20 MG TABLET PO SCH ×2 (00:07→23:41)
[2018-07-26] MEDS: ACETAMINOPHEN 325 MG TABLET PO PRN (00:07)
[2018-07-26] MEDS: DULOXETINE 30 MG CAPSULE.DR PO SCH ×3 (00:07→23:41)
[2018-07-26] MEDS: HEPARIN 5,000 UNITS/ML, 1ML SQ SCH ×4 (00:08→23:42)
[2018-07-26 01:21] VITALS: BP 147/54
[2018-07-26] MEDS: DEXTROSE 5% 1,000 ML IV SCH (02:20)
[2018-07-26] MEDS: PIPERACILLIN/TAZO/PMX 3.375GM 50 ML IV SCH ×4 (03:04→23:43)
[2018-07-26] MEDS: OXYcodone 5 MG/5 ML ORAL.SOL UDC PO PRN (03:20)
[2018-07-26] MEDS: ALBUTEROL SULFATE 2.5 MG/3 ML HHN SCH ×4 (03:35→21:11)
[2018-07-26] MEDS: INSULIN REGULAR 100 UNITS/ML, 3ML VIAL SQ-INSULIN SCH ×4 (04:29→23:43)
[2018-07-26 05:59] LABS: ANION GAP 9 mmol/L (5-15); CALCIUM 7.6 mg/dL (8.5-10.1); CHLORIDE 109 mmol/L (98-107); CREATININE 0.68 mg/dL (0.55-1.02)
[2018-07-26 06:26] LABS: MEAN CORPUSCULAR HEMOGLOBIN 29.4 pg (27.0-34.8); MEAN CORPUSCULAR HGB CONC 32.9 g/dL (32.4-35.8); MEAN CORPUSCULAR VOLUME 89.5 fL (80-100); PLATELET COUNT 270 x10^3/uL (130-400); RED BLOOD COUNT 3.25 x10^6/uL (3.82-5.3); RED CELL DISTRIBUTION WIDTH 14.4 % (9.6-15.2)
[2018-07-26 06:49] LABS: MD YES
[2018-07-26 06:51] LABS: BAND#(MANUAL) 1.26 x10^3/uL; BANDS%(MANUAL) 5 % (0-7); EOS#(MANUAL) 0.76 x10^3/uL (0.0-0.4); EOS% (MANUAL) 3 % (1-7); LYMPH#(MANUAL) 2.52 x10^3/uL (1-3.4); LYMPHS% (MANUAL) 10 % (22-44); METAMYELOCYTES# (MANUAL) 1.01 x10^3/uL (0-0); METAMYELOCYTES% (MANUAL) 4 % (0-1); MONOS#(MANUAL) 1.26 x10^3/uL (0.3-2.7); MONOS% (MANUAL) 5 % (2-9); MYELOCYTES# (MANUAL) 1.01 x10^3/uL (0-0); MYELOCYTES% (MANUAL) 4 % (0-0); SEG#(MANUAL) 17.39 x10^3/uL (1.8-6.8); SEGS% (MANUAL) 69 % (42-75)
[2018-07-26 06:52] LABS: ANISOCYTOSIS 1+; POLYCHROMASIA 1+
[2018-07-26 06:53] LABS: <PLATELET ESTIMATE> ADEQUATE; <PLT MORPHOLOGY> NORMAL PLT MORPH
[2018-07-26] MEDS: BUDESONIDE 0.5 MG/2 ML INHA HHN SCH ×2 (07:34→21:11)
[2018-07-26] MEDS: CHOLECALCIFEROL 1,000 UNIT TABLET PO SCH (08:59)
[2018-07-26] MEDS: PANTOPRAZOLE 40 MG IV IV SCH (08:59)
[2018-07-26] MEDS: SODIUM CHLORIDE FLUSH 10ML SYR IVF SCH ×2 (09:00→23:43)
[2018-07-26] MEDS: ASPIRIN 81 MG TABLET EC PO SCH ×2 (09:10→23:42)
[2018-07-26] MEDS: morphine SULFATE 10 MG/ML, 1ML IV PRN ×2 (10:34→23:43)
[2018-07-26] MEDS ORDERED: POTASSIUM CHLORIDE 10% 40 MEQ/30 ML UDC PO ONE (18:00)
[2018-07-26 19:20] VITALS: BP 138/55
[2018-07-26] MEDS ORDERED: POTASSIUM CHLORIDE 10% 20 MEQ/15 ML UDC PO ONE (22:00)
[2018-07-26] MEDS ORDERED: POTASSIUM CHLORIDE 10% 40 MEQ/30 ML UDC ONE (23:11)
[2018-07-27 01:19] VITALS: BP 109/53
[2018-07-27] MEDS: ALBUTEROL SULFATE 2.5 MG/3 ML HHN SCH ×4 (02:32→20:42)
[2018-07-27] MEDS: morphine SULFATE 10 MG/ML, 1ML IV PRN ×2 (05:21→16:00)
[2018-07-27] MEDS: INSULIN REGULAR 100 UNITS/ML, 3ML VIAL SQ-INSULIN SCH ×4 (05:22→22:56)
[2018-07-27] MEDS: PIPERACILLIN/TAZO/PMX 3.375GM 50 ML IV SCH ×3 (05:22→17:44)
[2018-07-27 05:28] LABS: ANION GAP 8 mmol/L (5-15); CALCIUM 7.1 mg/dL (8.5-10.1); CHLORIDE 113 mmol/L (98-107)
[2018-07-27 05:29] LABS: CREATININE 0.86 mg/dL (0.55-1.02)
[2018-07-27 05:30] LABS: MEAN CORPUSCULAR HEMOGLOBIN 28.5 pg (27.0-34.8); MEAN CORPUSCULAR HGB CONC 31.9 g/dL (32.4-35.8); MEAN CORPUSCULAR VOLUME 89.1 fL (80-100); MEAN PLATELET VOLUME 8.4 fL (7.4-10.4); PLATELET COUNT 345 x10^3/uL (130-400); RED BLOOD COUNT 3.51 x10^6/uL (3.82-5.3); RED CELL DISTRIBUTION WIDTH 14.3 % (9.6-15.2)
[2018-07-27 06:03] LABS: MD YES
[2018-07-27 06:05] LABS: BAND#(MANUAL) 1.15 x10^3/uL; BANDS%(MANUAL) 5 % (0-7); EOS#(MANUAL) 0.46 x10^3/uL (0.0-0.4); EOS% (MANUAL) 2 % (1-7); LYMPH#(MANUAL) 1.61 x10^3/uL (1-3.4); LYMPHS% (MANUAL) 7 % (22-44); METAMYELOCYTES# (MANUAL) 0.69 x10^3/uL (0-0); METAMYELOCYTES% (MANUAL) 3 % (0-1); MONOS#(MANUAL) 0.92 x10^3/uL (0.3-2.7); MONOS% (MANUAL) 4 % (2-9); MYELOCYTES# (MANUAL) 0.46 x10^3/uL (0-0); MYELOCYTES% (MANUAL) 2 % (0-0); SEG#(MANUAL) 17.71 x10^3/uL (1.8-6.8); SEGS% (MANUAL) 77 % (42-75)
[2018-07-27 06:06] LABS: ANISOCYTOSIS 1+; POLYCHROMASIA 1+
[2018-07-27 06:07] LABS: <PLATELET ESTIMATE> ADEQUATE; <PLT MORPHOLOGY> NORMAL PLT MORPH
[2018-07-27 06:18] VITALS: BP 142/58
[2018-07-27] MEDS ORDERED: POTASSIUM PHOSPHATE 44 MEQ in SODIUM CHLORIDE 0.9% 500 ML IV ONE (07:00)
[2018-07-27] MEDS: BUDESONIDE 0.5 MG/2 ML INHA HHN SCH ×2 (07:05→20:42)
[2018-07-27] MEDS: PANTOPRAZOLE 40 MG IV IV SCH (08:47)
[2018-07-27] MEDS: HEPARIN 5,000 UNITS/ML, 1ML SQ SCH ×2 (08:47→16:00)
[2018-07-27] MEDS: CHOLECALCIFEROL 1,000 UNIT TABLET PO SCH (08:48)
[2018-07-27] MEDS: DULOXETINE 30 MG CAPSULE.DR PO SCH ×2 (08:48→20:57)
[2018-07-27] MEDS: ASPIRIN 81 MG TABLET CHEW PO SCH ×2 (08:48→20:57)
[2018-07-27] MEDS: LAMOTRIGINE 200 MG TABLET PO SCH ×2 (08:48→20:57)
[2018-07-27] MEDS: SODIUM CHLORIDE FLUSH 10ML SYR IVF SCH ×2 (09:00→20:57)
[2018-07-27] MEDS: OXYcodone 5 MG/5 ML ORAL.SOL UDC PO PRN ×2 (12:21→20:58)
[2018-07-27 12:31] VITALS: BP 131/52
[2018-07-27 19:23] VITALS: BP 114/49
[2018-07-27] MEDS: ATORVASTATIN 20 MG TABLET PO SCH (20:57)
[2018-07-27] MEDS: ARIPIPRAZOLE 5 MG TABLET PO SCH (20:57)
[2018-07-28] MEDS: PIPERACILLIN/TAZO/PMX 3.375GM 50 ML IV SCH ×4 (00:13→18:00)
[2018-07-28] MEDS: HEPARIN 5,000 UNITS/ML, 1ML SQ SCH ×3 (00:15→20:06)
[2018-07-28 01:30] VITALS: BP 109/47
[2018-07-28] MEDS: OXYcodone 5 MG/5 ML ORAL.SOL UDC PO PRN ×2 (01:47→23:21)
[2018-07-28] MEDS: ALBUTEROL SULFATE 2.5 MG/3 ML HHN SCH ×4 (02:16→20:57)
[2018-07-28] MEDS: INSULIN REGULAR 100 UNITS/ML, 3ML VIAL SQ-INSULIN SCH ×3 (05:15→17:00)
[2018-07-28 06:07] LABS: MEAN CORPUSCULAR HEMOGLOBIN 29.6 pg (27.0-34.8); MEAN CORPUSCULAR HGB CONC 33.3 g/dL (32.4-35.8); MEAN CORPUSCULAR VOLUME 88.9 fL (80-100); MEAN PLATELET VOLUME 7.6 fL (7.4-10.4); PLATELET COUNT 409 x10^3/uL (130-400); RED BLOOD COUNT 3.39 x10^6/uL (3.82-5.3); RED CELL DISTRIBUTION WIDTH 14.5 % (9.6-15.2)
[2018-07-28 06:15] LABS: CHLORIDE 113 mmol/L (98-107)
[2018-07-28 06:22] LABS: ANION GAP 8 mmol/L (5-15); CREATININE 0.74 mg/dL (0.55-1.02); TRIGLYCERIDES 284 mg/dL (50-200)
[2018-07-28 06:41] LABS: MD YES
[2018-07-28 06:42] LABS: BAND#(MANUAL) 0.22 x10^3/uL; BANDS%(MANUAL) 1 % (0-7); EOS#(MANUAL) 0.43 x10^3/uL (0.0-0.4); EOS% (MANUAL) 2 % (1-7); LYMPH#(MANUAL) 1.72 x10^3/uL (1-3.4); LYMPHS% (MANUAL) 8 % (22-44); METAMYELOCYTES# (MANUAL) 0.43 x10^3/uL (0-0); METAMYELOCYTES% (MANUAL) 2 % (0-1); MONOS#(MANUAL) 0.65 x10^3/uL (0.3-2.7); MONOS% (MANUAL) 3 % (2-9); MYELOCYTES# (MANUAL) 0.86 x10^3/uL (0-0); MYELOCYTES% (MANUAL) 4 % (0-0); SEGS% (MANUAL) 80 % (42-75)
[2018-07-28 06:43] LABS: <PLATELET ESTIMATE> ADEQUATE; <PLT MORPHOLOGY> NORMAL PLT MORPH; POLYCHROMASIA 1+
[2018-07-28] MEDS: BUDESONIDE 0.5 MG/2 ML INHA HHN SCH ×2 (06:57→20:57)
[2018-07-28 07:40] VITALS: BP 118/45
[2018-07-28] MEDS: CHOLECALCIFEROL 1,000 UNIT TABLET PO SCH (10:36)
[2018-07-28] MEDS: PANTOPRAZOLE 40 MG IV IV SCH (10:36)
[2018-07-28] MEDS: DULOXETINE 30 MG CAPSULE.DR PO SCH ×2 (10:36→22:21)
[2018-07-28] MEDS: ASPIRIN 81 MG TABLET CHEW PO SCH ×2 (10:36→22:21)
[2018-07-28] MEDS: LAMOTRIGINE 200 MG TABLET PO SCH ×2 (10:37→22:20)
[2018-07-28] MEDS: SODIUM CHLORIDE FLUSH 10ML SYR IVF SCH ×2 (10:37→21:00)
[2018-07-28] MEDS: morphine SULFATE 10 MG/ML, 1ML IV PRN (11:44)
[2018-07-28 12:50] VITALS: BP 117/49
[2018-07-28] MEDS: ACETAMINOPHEN 325 MG TABLET PO PRN ×2 (14:58→23:21)
[2018-07-28 20:15] VITALS: BP 130/52
[2018-07-28] MEDS: ATORVASTATIN 20 MG TABLET PO SCH (22:20)
[2018-07-28] MEDS: ARIPIPRAZOLE 5 MG TABLET PO SCH (22:21)
[2018-07-29] MEDS: PIPERACILLIN/TAZO/PMX 3.375GM 50 ML IV SCH ×4 (01:08→17:31)
[2018-07-29 01:24] VITALS: BP 132/53
[2018-07-29] MEDS: INSULIN REGULAR 100 UNITS/ML, 3ML VIAL SQ-INSULIN SCH ×4 (01:24→19:47)
[2018-07-29] MEDS: ALBUTEROL SULFATE 2.5 MG/3 ML HHN SCH ×4 (02:37→21:35)
[2018-07-29] MEDS: HEPARIN 5,000 UNITS/ML, 1ML SQ SCH ×3 (04:28→19:52)
[2018-07-29 05:39] LABS: MEAN CORPUSCULAR HEMOGLOBIN 29.3 pg (27.0-34.8); MEAN CORPUSCULAR HGB CONC 32.6 g/dL (32.4-35.8); MEAN CORPUSCULAR VOLUME 89.8 fL (80-100); RED BLOOD COUNT 3.43 x10^6/uL (3.82-5.3)
[2018-07-29 05:40] LABS: PLATELET COUNT 405 x10^3/uL (130-400); RED CELL DISTRIBUTION WIDTH 14.7 % (9.6-15.2)
[2018-07-29 05:46] LABS: ANION GAP 9 mmol/L (5-15); CALCIUM 8.1 mg/dL (8.5-10.1); CHLORIDE 110 mmol/L (98-107)
[2018-07-29 06:08] LABS: MD YES
[2018-07-29 06:09] LABS: BAND#(MANUAL) 0.19 x10^3/uL; BANDS%(MANUAL) 1 % (0-7); EOS#(MANUAL) 0.94 x10^3/uL (0.0-0.4); EOS% (MANUAL) 5 % (1-7); LYMPH#(MANUAL) 2.63 x10^3/uL (1-3.4); LYMPHS% (MANUAL) 14 % (22-44); METAMYELOCYTES# (MANUAL) 0.56 x10^3/uL (0-0); METAMYELOCYTES% (MANUAL) 3 % (0-1); MONOS#(MANUAL) 0.19 x10^3/uL (0.3-2.7); MONOS% (MANUAL) 1 % (2-9); MYELOCYTES# (MANUAL) 0.75 x10^3/uL (0-0); MYELOCYTES% (MANUAL) 4 % (0-0); SEG#(MANUAL) 13.54 x10^3/uL (1.8-6.8); SEGS% (MANUAL) 72 % (42-75)
[2018-07-29 06:10] LABS: <PLATELET ESTIMATE> ADEQUATE; <PLT MORPHOLOGY> NORMAL PLT MORPH; POLYCHROMASIA 1+
[2018-07-29 07:20] VITALS: BP 137/55
[2018-07-29] MEDS: BUDESONIDE 0.5 MG/2 ML INHA HHN SCH ×2 (08:07→21:30)
[2018-07-29] MEDS: SODIUM CHLORIDE FLUSH 10ML SYR IVF SCH ×2 (09:00→19:53)
[2018-07-29] MEDS: PANTOPRAZOLE 40 MG IV IV SCH (09:07)
[2018-07-29] MEDS: OXYcodone 5 MG/5 ML ORAL.SOL UDC PO PRN ×2 (09:07→22:19)
[2018-07-29] MEDS: DULOXETINE 30 MG CAPSULE.DR PO SCH ×3 (09:08→22:18)
[2018-07-29] MEDS: CHOLECALCIFEROL 1,000 UNIT TABLET PO SCH (09:08)
[2018-07-29] MEDS: LAMOTRIGINE 200 MG TABLET PO SCH ×2 (09:08→19:53)
[2018-07-29] MEDS: ASPIRIN 81 MG TABLET CHEW PO SCH ×2 (09:08→19:53)
[2018-07-29 10:18] LABS: CLOSTRIDIUM DIFFICILE ANTIGEN NEGATIVE; CLOSTRIDIUM DIFFICILE TOXIN NEGATIVE (Negative)
[2018-07-29] MEDS: ACETAMINOPHEN 325 MG TABLET PO PRN (11:35)
[2018-07-29] MEDS: LEVOTHYROXINE 50 MCG TABLET PO SCH (12:30)
[2018-07-29 12:39] VITALS: BP 131/57
[2018-07-29] MEDS ORDERED: LEVOTHYROXINE 25 MCG TABLET ONE (13:50)
[2018-07-29] MEDS: ONDANSETRON 2MG/ML, 2ML IV PRN (13:53)
[2018-07-29 19:25] VITALS: BP 143/63
[2018-07-29] MEDS: morphine SULFATE 10 MG/ML, 1ML IV PRN (19:50)
[2018-07-29] MEDS: ARIPIPRAZOLE 5 MG TABLET PO SCH (19:53)
[2018-07-29] MEDS: ATORVASTATIN 20 MG TABLET PO SCH (19:53)
[2018-07-30] MEDS: PIPERACILLIN/TAZO/PMX 3.375GM 50 ML IV SCH ×2 (00:11→06:26)
[2018-07-30] MEDS: ALBUTEROL SULFATE 2.5 MG/3 ML HHN SCH ×3 (02:30→18:24)
[2018-07-30] MEDS: INSULIN REGULAR 100 UNITS/ML, 3ML VIAL SQ-INSULIN SCH ×4 (02:47→20:00)
[2018-07-30 02:55] VITALS: BP 125/57
[2018-07-30] MEDS: ONDANSETRON 2MG/ML, 2ML IV PRN ×3 (03:11→23:12)
[2018-07-30] MEDS: HEPARIN 5,000 UNITS/ML, 1ML SQ SCH ×3 (03:11→21:03)
[2018-07-30 05:52] LABS: BASOPHILS # (AUTO) 0.04 x10^3/uL (0-0.1); BASOPHILS % (AUTO) 0 % (0-1); EOSINOPHILS # (AUTO) 0.79 x10^3/uL (0-0.4); EOSINOPHILS % (AUTO) 5 % (1-7); LYMPHOCYTES # (AUTO) 1.53 x10^3/uL (1-3.4); LYMPHOCYTES % (AUTO) 9 % (22-44); MD NO; MEAN CORPUSCULAR HEMOGLOBIN 29.6 pg (27.0-34.8); MEAN CORPUSCULAR HGB CONC 33.3 g/dL (32.4-35.8); MEAN CORPUSCULAR VOLUME 88.9 fL (80-100); MEAN PLATELET VOLUME 7.5 fL (7.4-10.4); MONOCYTES # (AUTO) 0.29 x10^3/uL (0.2-0.8); MONOCYTES % (AUTO) 2 % (2-9); NEUTROPHILS # (AUTO) 14.85 x10^3/uL (1.8-6.8); NEUTROPHILS % (AUTO) 85 % (42-75); PLATELET COUNT 423 x10^3/uL (130-400); RED BLOOD COUNT 3.36 x10^6/uL (3.82-5.3); RED CELL DISTRIBUTION WIDTH 14.7 % (9.6-15.2)
[2018-07-30 06:06] LABS: CHLORIDE 106 mmol/L (98-107)
[2018-07-30 06:16] LABS: ANION GAP 10 mmol/L (5-15); CALCIUM 8.1 mg/dL (8.5-10.1); CREATININE 0.72 mg/dL (0.55-1.02)
[2018-07-30] MEDS: LEVOTHYROXINE 50 MCG TABLET PO SCH (06:26)
[2018-07-30 08:07] VITALS: BP 137/60
[2018-07-30] MEDS: LAMOTRIGINE 200 MG TABLET PO SCH ×2 (08:39→20:58)
[2018-07-30] MEDS: PANTOPRAZOLE 40 MG IV IV SCH (08:39)
[2018-07-30] MEDS: CHOLECALCIFEROL 1,000 UNIT TABLET PO SCH (08:39)
[2018-07-30] MEDS: DULOXETINE 30 MG CAPSULE.DR PO SCH ×2 (08:39→20:58)
[2018-07-30] MEDS: ASPIRIN 81 MG TABLET CHEW PO SCH ×2 (08:40→20:58)
[2018-07-30] MEDS: SODIUM CHLORIDE FLUSH 10ML SYR IVF SCH ×2 (08:41→21:00)
[2018-07-30] MEDS: BUDESONIDE 0.5 MG/2 ML INHA HHN SCH ×2 (08:45→21:46)
[2018-07-30] MEDS: morphine SULFATE 10 MG/ML, 1ML IV PRN (12:28)
[2018-07-30 13:19] VITALS: BP 126/57
--- NOTE | 2018-07-30 15:35 | NUR ---
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 Will reassess with solid foods when appropriate. Addendum: 07/31/18 at 935 by Tracey CHEN Amended: Links added. Addendum: 07/31/18 at 36 by Tracey CHEN [place] sheet posted in room Signed: 07/31/18 at 0937 by Tracey CHEN
[2018-07-30] MEDS: metroNIDAZOLE 250 MG TABLET PO SCH ×2 (16:26→20:58)
[2018-07-30] MEDS: ARIPIPRAZOLE 5 MG TABLET PO SCH (20:58)
[2018-07-30] MEDS: ATORVASTATIN 20 MG TABLET PO SCH (20:58)
[2018-07-30] MEDS: OXYcodone 5 MG/5 ML ORAL.SOL UDC PO PRN (20:59)
[2018-07-30] MEDS ORDERED: CEFDINIR 300 MG CAPSULE PO SCH (21:00)
[2018-07-31] MEDS: INSULIN REGULAR 100 UNITS/ML, 3ML VIAL SQ-INSULIN SCH ×4 (02:00→22:29)
[2018-07-31 02:07] VITALS: BP 150/83
[2018-07-31] MEDS: HEPARIN 5,000 UNITS/ML, 1ML SQ SCH ×2 (04:32→16:58)
[2018-07-31 05:53] LABS: MEAN CORPUSCULAR HEMOGLOBIN 29.6 pg (27.0-34.8); MEAN CORPUSCULAR HGB CONC 33.2 g/dL (32.4-35.8); MEAN PLATELET VOLUME 7.7 fL (7.4-10.4); PLATELET COUNT 540 x10^3/uL (130-400); RED BLOOD COUNT 3.74 x10^6/uL (3.82-5.3); RED CELL DISTRIBUTION WIDTH 14.7 % (9.6-15.2)
[2018-07-31 05:59] LABS: ANION GAP 12 mmol/L (5-15); CALCIUM 8.2 mg/dL (8.5-10.1); CHLORIDE 106 mmol/L (98-107)
[2018-07-31 06:02] LABS: CREATININE 0.69 mg/dL (0.55-1.02); TRIGLYCERIDES 345 mg/dL (50-200)
[2018-07-31 06:18] LABS: BASOPHILS # (AUTO) 0.02 x10^3/uL (0-0.1); BASOPHILS % (AUTO) 0 % (0-1); EOSINOPHILS # (AUTO) 0.34 x10^3/uL (0-0.4); EOSINOPHILS % (AUTO) 2 % (1-7); LYMPHOCYTES # (AUTO) 1.92 x10^3/uL (1-3.4); LYMPHOCYTES % (AUTO) 10 % (22-44); MD SCAN; MONOCYTES # (AUTO) 0.62 x10^3/uL (0.2-0.8); MONOCYTES % (AUTO) 3 % (2-9); NEUTROPHILS % (AUTO) 85 % (42-75)
[2018-07-31] MEDS: LEVOTHYROXINE 50 MCG TABLET PO SCH (06:34)
[2018-07-31] MEDS: PANTOPROZOLE 40MG TABLET PO SCH (06:34)
[2018-07-31] MEDS: ONDANSETRON 2MG/ML, 2ML IV PRN ×2 (07:47→22:28)
[2018-07-31 08:25] VITALS: BP 142/64
[2018-07-31] MEDS: SODIUM CHLORIDE FLUSH 10ML SYR IVF SCH ×2 (08:28→22:30)
[2018-07-31] MEDS ORDERED: ALBUTEROL/IPRATROPIUM 2.5MG/0.5MG, 3 ML HHN SCH (09:00)
[2018-07-31] MEDS: morphine SULFATE 10 MG/ML, 1ML IV PRN (09:53)
[2018-07-31 14:00] VITALS: BP 138/62
[2018-07-31] MEDS: PROMETHAZINE 25 MG/ML, 1ML IM PRN (16:56)
[2018-07-31] MEDS: metroNIDAZOLE 250 MG TABLET PO SCH ×3 (16:58→22:29)
[2018-07-31 20:41] VITALS: BP 148/67
[2018-07-31] MEDS: CEFDINIR 300 MG CAPSULE PO SCH ×2 (21:00→22:29)
[2018-07-31] MEDS ORDERED: ALBUTEROL SULFATE 2.5 MG/3 ML NPPB SCH (21:00)
[2018-07-31] MEDS: LAMOTRIGINE 200 MG TABLET PO SCH ×2 (21:00→22:29)
[2018-08-01] MEDS: HEPARIN 5,000 UNITS/ML, 1ML SQ SCH ×2 (01:01→08:10)
[2018-08-01] MEDS: PROMETHAZINE 25 MG/ML, 1ML IM PRN ×2 (01:17→08:09)
[2018-08-01 01:44] VITALS: BP 132/66
[2018-08-01] MEDS: INSULIN REGULAR 100 UNITS/ML, 3ML VIAL SQ-INSULIN SCH ×4 (03:53→22:00)
[2018-08-01] MEDS: PANTOPROZOLE 40MG TABLET PO SCH (06:00)
[2018-08-01] MEDS: LEVOTHYROXINE 50 MCG TABLET PO SCH (06:00)
[2018-08-01 06:13] LABS: MEAN CORPUSCULAR HEMOGLOBIN 29.4 pg (27.0-34.8); MEAN CORPUSCULAR HGB CONC 32.9 g/dL (32.4-35.8); MEAN CORPUSCULAR VOLUME 89.5 fL (80-100); MEAN PLATELET VOLUME 8.3 fL (7.4-10.4); PLATELET COUNT 594 x10^3/uL (130-400); RED BLOOD COUNT 3.93 x10^6/uL (3.82-5.3); RED CELL DISTRIBUTION WIDTH 14.5 % (9.6-15.2)
[2018-08-01 06:24] LABS: ALANINE AMINOTRANSFERASE 24 U/L (12-78); ALBUMIN 2.5 g/dL (3.4-5.0); ANION GAP 10 mmol/L (5-15); CALCIUM 8.3 mg/dL (8.5-10.1); CHLORIDE 107 mmol/L (98-107)
[2018-08-01 06:26] LABS: ALKALINE PHOSPHATASE 195 U/L (45-117); BILIRUBIN,TOTAL 0.4 mg/dL (0.2-1.0); TOTAL PROTEIN 6.8 g/dL (6.4-8.2)
[2018-08-01 06:42] VITALS: BP 144/61
[2018-08-01 07:31] LABS: MD YES
[2018-08-01 07:32] LABS: EOS#(MANUAL) 0.32 x10^3/uL (0.0-0.4); EOS% (MANUAL) 1 % (1-7); LYMPH#(MANUAL) 1.58 x10^3/uL (1-3.4); LYMPHS% (MANUAL) 5 % (22-44); MONOS#(MANUAL) 1.26 x10^3/uL (0.3-2.7); MONOS% (MANUAL) 4 % (2-9); SEG#(MANUAL) 28.35 x10^3/uL (1.8-6.8); SEGS% (MANUAL) 90 % (42-75)
[2018-08-01 07:33] LABS: <PLATELET ESTIMATE> INCREASED; <PLT MORPHOLOGY> NORMAL PLT MORPH; ANISOCYTOSIS 1+; POLYCHROMASIA 1+
[2018-08-01] MEDS: SODIUM CHLORIDE FLUSH 10ML SYR IVF SCH ×2 (10:06→20:57)
[2018-08-01] MEDS: metroNIDAZOLE 250 MG TABLET PO SCH ×3 (10:06→20:56)
[2018-08-01] MEDS: LAMOTRIGINE 200 MG TABLET PO SCH ×2 (10:06→20:56)
[2018-08-01] MEDS: DULOXETINE 30 MG CAPSULE.DR PO SCH (10:06)
[2018-08-01] MEDS: CEFDINIR 300 MG CAPSULE PO SCH ×2 (10:06→20:56)
[2018-08-01] MEDS: METOCLOPRAMIDE 5 MG/ML, 2ML IVPush SCH ×3 (10:07→20:56)
[2018-08-01] MEDS ORDERED: OMNIPAQUE 350 MG/ML, 100ML BOTTLE ONE (11:09)
[2018-08-01 12:35] VITALS: BP 129/54
[2018-08-01 15:26] LABS: MICROSCOPIC NOT IND
[2018-08-01 15:29] LABS: CULTURE INDICATED? NO
[2018-08-01] MEDS: ENOXAPARIN 40 MG/0.4 ML SQ SCH (15:47)
[2018-08-01] MEDS: SODIUM CHLORIDE 0.9% 1,000 ML IV SCH (17:37)
[2018-08-01] MEDS: ATORVASTATIN 20 MG TABLET PO SCH (20:56)
[2018-08-01 21:20] VITALS: BP 144/55
[2018-08-02 03:00] VITALS: BP 132/53
[2018-08-02] MEDS: SODIUM CHLORIDE 0.9% 1,000 ML IV SCH (03:42)
[2018-08-02] MEDS: METOCLOPRAMIDE 5 MG/ML, 2ML IVPush SCH ×4 (04:36→20:36)
[2018-08-02] MEDS: morphine SULFATE 10 MG/ML, 1ML IV PRN ×2 (04:37→11:17)
[2018-08-02] MEDS ORDERED: LEVOTHYROXINE 25 MCG TABLET ONE (05:22)
[2018-08-02] MEDS: LEVOTHYROXINE 50 MCG TABLET PO SCH (05:30)
[2018-08-02] MEDS: INSULIN REGULAR 100 UNITS/ML, 3ML VIAL SQ-INSULIN SCH ×4 (05:30→22:24)
[2018-08-02] MEDS: PANTOPROZOLE 40MG TABLET PO SCH (05:30)
[2018-08-02 06:13] LABS: ALBUMIN 2.3 g/dL (3.4-5.0); ANION GAP 10 mmol/L (5-15); CALCIUM 7.4 mg/dL (8.5-10.1); CHLORIDE 110 mmol/L (98-107)
[2018-08-02 06:16] LABS: ALANINE AMINOTRANSFERASE 22 U/L (12-78); ALKALINE PHOSPHATASE 152 U/L (45-117); BILIRUBIN,TOTAL 0.2 mg/dL (0.2-1.0); TOTAL PROTEIN 5.9 g/dL (6.4-8.2)
[2018-08-02 06:20] LABS: BASOPHILS # (AUTO) 0.06 x10^3/uL (0-0.1); BASOPHILS % (AUTO) 0 % (0-1); EOSINOPHILS # (AUTO) 0.39 x10^3/uL (0-0.4); EOSINOPHILS % (AUTO) 2 % (1-7); LYMPHOCYTES # (AUTO) 1.83 x10^3/uL (1-3.4); LYMPHOCYTES % (AUTO) 11 % (22-44); MD NO; MEAN CORPUSCULAR HEMOGLOBIN 29.4 pg (27.0-34.8); MEAN CORPUSCULAR HGB CONC 32.6 g/dL (32.4-35.8); MEAN CORPUSCULAR VOLUME 90.4 fL (80-100); MEAN PLATELET VOLUME 8.8 fL (7.4-10.4); MONOCYTES # (AUTO) 0.73 x10^3/uL (0.2-0.8); MONOCYTES % (AUTO) 4 % (2-9); NEUTROPHILS # (AUTO) 14.23 x10^3/uL (1.8-6.8); NEUTROPHILS % (AUTO) 83 % (42-75); PLATELET COUNT 399 x10^3/uL (130-400); RED BLOOD COUNT 3.13 x10^6/uL (3.82-5.3); RED CELL DISTRIBUTION WIDTH 15.5 % (9.6-15.2)
[2018-08-02] MEDS: NS + 40MEQ KCL 1,000 ML IV SCH ×2 (07:59→20:35)
[2018-08-02] MEDS: CEFDINIR 300 MG CAPSULE PO SCH ×2 (08:03→20:36)
[2018-08-02] MEDS: LAMOTRIGINE 200 MG TABLET PO SCH ×2 (08:03→20:37)
[2018-08-02] MEDS: DULOXETINE 30 MG CAPSULE.DR PO SCH (08:03)
[2018-08-02] MEDS: SODIUM CHLORIDE FLUSH 10ML SYR IVF SCH ×2 (08:04→20:36)
[2018-08-02] MEDS: metroNIDAZOLE 250 MG TABLET PO SCH ×3 (08:04→20:36)
[2018-08-02] MEDS: CHOLECALCIFEROL 1,000 UNIT TABLET PO SCH (08:04)
[2018-08-02 08:26] VITALS: BP 156/57
[2018-08-02 13:04] VITALS: BP 130/53
[2018-08-02] MEDS: OXYcodone 5 MG/5 ML ORAL.SOL UDC PO PRN ×2 (14:24→22:22)
[2018-08-02] MEDS: ENOXAPARIN 40 MG/0.4 ML SQ SCH (15:11)
[2018-08-02] MEDS: ATORVASTATIN 20 MG TABLET PO SCH (20:36)
[2018-08-02 21:38] VITALS: BP 123/47
[2018-08-03 02:58] VITALS: BP 143/63
[2018-08-03] MEDS: METOCLOPRAMIDE 5 MG/ML, 2ML IVPush SCH ×4 (03:06→23:06)
[2018-08-03] MEDS: INSULIN REGULAR 100 UNITS/ML, 3ML VIAL SQ-INSULIN SCH ×4 (04:39→20:27)
[2018-08-03 05:46] LABS: BASOPHILS # (AUTO) 0.03 x10^3/uL (0-0.1); BASOPHILS % (AUTO) 0 % (0-1); EOSINOPHILS # (AUTO) 0.41 x10^3/uL (0-0.4); EOSINOPHILS % (AUTO) 4 % (1-7); LYMPHOCYTES # (AUTO) 1.58 x10^3/uL (1-3.4); LYMPHOCYTES % (AUTO) 14 % (22-44); MD NO; MEAN CORPUSCULAR HEMOGLOBIN 30.3 pg (27.0-34.8); MEAN CORPUSCULAR HGB CONC 33.6 g/dL (32.4-35.8); MEAN CORPUSCULAR VOLUME 90.2 fL (80-100); MEAN PLATELET VOLUME 7.6 fL (7.4-10.4); MONOCYTES # (AUTO) 0.68 x10^3/uL (0.2-0.8); MONOCYTES % (AUTO) 6 % (2-9); NEUTROPHILS # (AUTO) 8.56 x10^3/uL (1.8-6.8); NEUTROPHILS % (AUTO) 76 % (42-75); PLATELET COUNT 556 x10^3/uL (130-400); RED BLOOD COUNT 2.77 x10^6/uL (3.82-5.3); RED CELL DISTRIBUTION WIDTH 15.9 % (9.6-15.2)
[2018-08-03 05:55] LABS: CHLORIDE 113 mmol/L (98-107)
[2018-08-03] MEDS: LEVOTHYROXINE 50 MCG TABLET PO SCH (05:59)
[2018-08-03] MEDS: PANTOPROZOLE 40MG TABLET PO SCH (06:00)
[2018-08-03 06:05] LABS: ALANINE AMINOTRANSFERASE 18 U/L (12-78); ALBUMIN 2.2 g/dL (3.4-5.0); ALKALINE PHOSPHATASE 129 U/L (45-117); BILIRUBIN,TOTAL 0.3 mg/dL (0.2-1.0); CALCIUM 7.3 mg/dL (8.5-10.1); CREATININE 0.57 mg/dL (0.55-1.02); TOTAL PROTEIN 5.5 g/dL (6.4-8.2); TRIGLYCERIDES 197 mg/dL (50-200)
[2018-08-03 06:21] LABS: ANION GAP 8 mmol/L (5-15)
[2018-08-03] MEDS: OXYcodone 5 MG/5 ML ORAL.SOL UDC PO PRN ×2 (06:39→23:05)
[2018-08-03] MEDS ORDERED: MAGNESIUM SULFATE PMX 2GM/50ML 50 ML IV ONE (07:30)
[2018-08-03 08:16] VITALS: BP 151/67
[2018-08-03] MEDS: LAMOTRIGINE 200 MG TABLET PO SCH ×2 (08:25→20:12)
[2018-08-03] MEDS: SODIUM CHLORIDE FLUSH 10ML SYR IVF SCH ×2 (08:25→20:13)
[2018-08-03] MEDS: metroNIDAZOLE 250 MG TABLET PO SCH ×3 (08:25→20:11)
[2018-08-03] MEDS: DULOXETINE 30 MG CAPSULE.DR PO SCH (08:25)
[2018-08-03] MEDS: CEFDINIR 300 MG CAPSULE PO SCH ×2 (08:25→20:11)
[2018-08-03] MEDS: CHOLECALCIFEROL 1,000 UNIT TABLET PO SCH (08:25)
[2018-08-03 13:20] VITALS: BP 147/52
[2018-08-03] MEDS: ENOXAPARIN 40 MG/0.4 ML SQ SCH (16:35)
[2018-08-03 18:55] VITALS: BP 152/61
[2018-08-03] MEDS: ATORVASTATIN 20 MG TABLET PO SCH (20:11)
[2018-08-03] MEDS: ONDANSETRON 2MG/ML, 2ML IV PRN (20:12)
[2018-08-04 02:03] VITALS: BP 133/51
[2018-08-04] MEDS: METOCLOPRAMIDE 5 MG/ML, 2ML IVPush SCH (04:41)
[2018-08-04 05:29] LABS: BASOPHILS # (AUTO) 0.06 x10^3/uL (0-0.1); BASOPHILS % (AUTO) 1 % (0-1); EOSINOPHILS # (AUTO) 0.32 x10^3/uL (0-0.4); EOSINOPHILS % (AUTO) 3 % (1-7); LYMPHOCYTES # (AUTO) 1.68 x10^3/uL (1-3.4); LYMPHOCYTES % (AUTO) 16 % (22-44); MD NO; MEAN CORPUSCULAR HEMOGLOBIN 28.5 pg (27.0-34.8); MEAN CORPUSCULAR HGB CONC 31.6 g/dL (32.4-35.8); MEAN CORPUSCULAR VOLUME 90.3 fL (80-100); MEAN PLATELET VOLUME 8.2 fL (7.4-10.4); MONOCYTES # (AUTO) 0.61 x10^3/uL (0.2-0.8); MONOCYTES % (AUTO) 6 % (2-9); NEUTROPHILS # (AUTO) 7.62 x10^3/uL (1.8-6.8); NEUTROPHILS % (AUTO) 74 % (42-75); PLATELET COUNT 533 x10^3/uL (130-400); RED BLOOD COUNT 2.99 x10^6/uL (3.82-5.3); RED CELL DISTRIBUTION WIDTH 15.8 % (9.6-15.2)
[2018-08-04 05:42] LABS: ALBUMIN 2.3 g/dL (3.4-5.0); ANION GAP 8 mmol/L (5-15); CALCIUM 7.7 mg/dL (8.5-10.1); CHLORIDE 106 mmol/L (98-107); CREATININE 0.54 mg/dL (0.55-1.02)
[2018-08-04 06:38] VITALS: BP 138/56
[2018-08-04] MEDS: LEVOTHYROXINE 50 MCG TABLET PO SCH (06:44)
[2018-08-04] MEDS: PANTOPROZOLE 40MG TABLET PO SCH (06:44)
[2018-08-04] MEDS ORDERED: MAGNESIUM SULFATE PMX 2GM/50ML 50 ML IV ONE (07:00)
[2018-08-04] MEDS: INSULIN REGULAR 100 UNITS/ML, 3ML VIAL SQ-INSULIN SCH ×2 (08:01→11:07)
[2018-08-04] MEDS: SODIUM CHLORIDE FLUSH 10ML SYR IVF SCH (08:01)
[2018-08-04] MEDS: CEFDINIR 300 MG CAPSULE PO SCH (08:38)
[2018-08-04] MEDS: metroNIDAZOLE 250 MG TABLET PO SCH (08:38)
[2018-08-04] MEDS: LAMOTRIGINE 200 MG TABLET PO SCH (08:38)
[2018-08-04] MEDS: CHOLECALCIFEROL 1,000 UNIT TABLET PO SCH (08:38)
[2018-08-04] MEDS: DULOXETINE 30 MG CAPSULE.DR PO SCH (08:38)
[2018-08-04 13:15] VITALS: BP 142/58
[2018-08-04] MEDS: OXYcodone 5 MG/5 ML ORAL.SOL UDC PO PRN (14:56)
[2018-08-04] MEDS: ENOXAPARIN 40 MG/0.4 ML SQ SCH (14:56)
== END 2018-08-04 14:45 | DRG 853 ==
LOC: ED 12:15 → EDIP 13:19 → 4EST 14:45 → 4WST 19:26 → ICU 23:21 → 4NOR 07-24 15:19
PROVIDERS: ADMIT Internal Medicine; ATTEND Internal Medicine
PROC: 02HV33Z Insertion of Infusion Device into Superior Vena Cava, Percutaneous Approach (ICD-10-PCS; 2018-07-21)
PROC: 5A1945Z Respiratory Ventilation, 24-96 Consecutive Hours (ICD-10-PCS; 2018-07-21)
PROC: 0BH17EZ Insertion of Endotracheal Airway into Trachea, Via Natural or Artificial Opening (ICD-10-PCS; 2018-07-21)
PROC: 0DB80ZZ Excision of Small Intestine, Open Approach (ICD-10-PCS; principal; 2018-07-21 21:45)
PROC: 0D9670Z Drainage of Stomach with Drainage Device, Via Natural or Artificial Opening (ICD-10-PCS; 2018-07-22)
PROC: 0DB80ZZ Excision of Small Intestine, Open Approach (ICD-10-PCS; 2018-07-22)
PROC: 0T9B70Z Drainage of Bladder with Drainage Device, Via Natural or Artificial Opening (ICD-10-PCS; 2018-08-01)
DX: A41.9 Sepsis, unspecified organism (principal); K55.029 Acute infarction of small intestine, extent unspecified; J96.20 Acute and chronic respiratory failure, unspecified whether with hypoxia or hypercapnia; E43 Unspecified severe protein-calorie malnutrition; K56.2 Volvulus; K56.609 Unspecified intestinal obstruction, unspecified as to partial versus complete obstruction; E87.1 Hypo-osmolality and hyponatremia; J98.11 Atelectasis; Z99.11 Dependence on respirator [ventilator] status; K56.7 Ileus, unspecified; Z79.84 Long term (current) use of oral hypoglycemic drugs; J44.9 Chronic obstructive pulmonary disease, unspecified; D64.9 Anemia, unspecified; E11.51 Type 2 diabetes mellitus with diabetic peripheral angiopathy without gangrene; E11.65 Type 2 diabetes mellitus with hyperglycemia; E03.9 Hypothyroidism, unspecified; E78.5 Hyperlipidemia, unspecified; E83.39 Other disorders of phosphorus metabolism; E83.42 Hypomagnesemia; E86.0 Dehydration; E87.6 Hypokalemia; F32.9 Major depressive disorder, single episode, unspecified; F41.9 Anxiety disorder, unspecified; G89.4 Chronic pain syndrome; M51.36 Other intervertebral disc degeneration, lumbar region; N28.9 Disorder of kidney and ureter, unspecified; I10 Essential (primary) hypertension; I25.10 Atherosclerotic heart disease of native coronary artery without angina pectoris; K63.89 Other specified diseases of intestine; M41.9 Scoliosis, unspecified; Z51.5 Encounter for palliative care; Z66 Do not resuscitate; Z90.2 Acquired absence of lung [part of]; Z95.1 Presence of aortocoronary bypass graft; Z68.23 Body mass index [BMI] 23.0-23.9, adult; Z85.118 Personal history of other malignant neoplasm of bronchus and lung; Z91.040 Latex allergy status; Z88.5 Allergy status to narcotic agent; Z88.2 Allergy status to sulfonamides; Z91.048 Other nonmedicinal substance allergy status
CPT/HCPCS: 36415; 36600; 71045; 74018; 74022; 74176; 74177; 80048; 80053; 81001; 81003; 82040; 82330; 82803; 82947; 82962; 83605; 83690; 83735; 83880; 84100; 84132; 84134; 84145; 84295; 84443; 84478; 84484; 85014; 85025; 85610; 87040; 87070; 87077; 87081; 87186; 87205; 87324; 88307; 93005; 94002; 94003; 94640; 99291; G0378; J1644; J1650; J1815; J1956; J2405; J2543; J2550; J2704; J3010; J3480; J7070; J7613; J7626; J7644; Q9967; C9113; J0330; J0360; J2270; J2370; J2765; J3475; J3490; J7030; J7040; J7050

== ENCOUNTER 2018-10-05 15:31 | Inpatient (IN) | payer MEDICARE, MEDICAID, OTHER ==
[~2018-10-05] VITALS: Ht 149.9 cm; Wt 51.9 kg
--- NOTE | 2018-10-05 15:46 | NUR ---
Pt BIB [facility] from [place]. Pt had a bowel rescetion in July. Pt complains of upper ABD and umbilical pain for 1 week. Reports having n/v, fever and chills. Reports no BM today. Pt is connected to the monitor. Call light within reach. MD at bedside.
[2018-10-05] MEDS ORDERED: SODIUM CHLORIDE FLUSH 10ML SYR IVF ONE (16:00)
--- NOTE | 2018-10-05 16:00 | NUR ---
Pt got up to bedside commode with 1 assist.
[2018-10-05 16:16] LABS: MEAN CORPUSCULAR HEMOGLOBIN 24.3 pg (27.0-34.8); MEAN CORPUSCULAR HGB CONC 31.2 g/dL (32.4-35.8); MEAN CORPUSCULAR VOLUME 77.7 fL (80-100); MEAN PLATELET VOLUME 7.9 fL (7.4-10.4); PLATELET COUNT 760 x10^3/uL (130-400); RED BLOOD COUNT 4.81 x10^6/uL (3.82-5.3); RED CELL DISTRIBUTION WIDTH 19.2 % (9.6-15.2)
[2018-10-05 16:26] LABS: MICROSCOPIC AUTO
[2018-10-05 16:28] LABS: ALANINE AMINOTRANSFERASE 21 U/L (12-78); ALBUMIN 3.6 g/dL (3.4-5.0); ANION GAP 9 mmol/L (5-15); CALCIUM 9.6 mg/dL (8.5-10.1); CHLORIDE 99 mmol/L (98-107)
[2018-10-05 16:30] LABS: ALKALINE PHOSPHATASE 170 U/L (45-117); BILIRUBIN,TOTAL 0.4 mg/dL (0.2-1.0)
--- NOTE | 2018-10-05 16:48 | NUR ---
PT IS RESTING IN BED, WITH EYES CLOSED, RESPIRATIONS EQUAL AND NON LABORED. NAD. PT IS CONNECTED TO THE MONITOR. CALL LIGHT WITHIN REACH. FAMILY AT BEDSIDE.
[2018-10-05 16:51] LABS: MD YES
[2018-10-05 16:53] LABS: BAND#(MANUAL) 0.57 x10^3/uL; BANDS%(MANUAL) 2 % (0-7); LYMPH#(MANUAL) 1.98 x10^3/uL (1-3.4); LYMPHS% (MANUAL) 7 % (22-44); MONOS#(MANUAL) 1.42 x10^3/uL (0.3-2.7); MONOS% (MANUAL) 5 % (2-9); REACTIVE LYMPHS # (MANUAL) 0.57 x10^3/uL (0-0); REACTIVE LYMPHS % (MANUAL) 2 % (0-0); SEG#(MANUAL) 23.77 x10^3/uL (1.8-6.8); SEGS% (MANUAL) 84 % (42-75)
[2018-10-05 16:55] LABS: <PLATELET ESTIMATE> INCREASED; <RBC MORPHOLOGY> NORMAL
[2018-10-05 16:56] LABS: LARGE PLATELETS 1+
[2018-10-05 17:00] LABS: CULTURE INDICATED? YES
--- NOTE | 2018-10-05 17:08 | NUR ---
PT TAKEN TO CT.
[2018-10-05] MEDS ORDERED: OMNIPAQUE 350 MG/ML, 100ML BOTTLE ONE (17:16)
--- NOTE | 2018-10-05 17:23 | NUR ---
PT IS BACK FROM CT. LAB AT BEDSIDE.
--- NOTE | 2018-10-05 18:01 | NUR ---
PT IS RESTING IN BED, TALKING WITH STAFF, RESPIRATIONS EQUAL AND NON LABORED. NAD. PT IS CONNECTED TO THE MONITOR. CALL LIGHT WITHIN REACH.
--- NOTE | 2018-10-05 18:59 | NUR ---
REPORT GIVEN TO DANISH BILLINGSLEY.
--- NOTE | 2018-10-05 19:00 | NUR ---
RECEIVED BS REPORT FROM JOSE CRUZ HARKINS TO ASSUME PT. CARE. CHART IS UP FOR RECHECK BY LISSY.
--- NOTE | 2018-10-05 19:04 | NUR ---
DR. RODRÍGUEZ AT TO DISCUSS POC.
[2018-10-05] MEDS ORDERED: ONDANSETRON 2MG/ML, 2ML ONE (19:12)
[2018-10-05] MEDS ORDERED: FAMOTIDINE 20 MG/2 ML ONE (19:13)
[2018-10-05] MEDS ORDERED: CEFTRIAXONE PMX 1GM/50ML 50 ML ONE (19:13)
--- NOTE | 2018-10-05 19:28 | NUR ---
SM AT TO EVAL PT. FOR ADMISSION. PER SON HE DOESN'T BELIEVE MEDS HAVE CHANGED SICNE PT. WAS HERE IN JUL. PT. REPORTS "NORMAL" BM YESTERDAY.
[2018-10-05] MEDS ORDERED: SODIUM CHLORIDE 0.9% 1,000ML IVBOLUS ONE (19:30)
[2018-10-05] MEDS ORDERED: FAMOTIDINE 20 MG/2 ML IVP ONE (19:30)
[2018-10-05] MEDS ORDERED: CEFTRIAXONE PMX 1GM/50ML 50 ML IVPB ONE (19:30)
[2018-10-05] MEDS ORDERED: ONDANSETRON 2MG/ML, 2ML IVPush ONE (19:30)
[2018-10-05] MEDS ORDERED: POTASSIUM CHLORIDE 20 MEQ in SODIUM CHLORIDE 0.9% 1,000 ML IV ONE (19:55)
--- NOTE | 2018-10-05 19:56 | NUR ---
PT. JENNIFER CHANGED AND SKIN CLEANSED. [facility] AT TO CONTINUE EVAL FOR ADMISSION.
[2018-10-05] MEDS ORDERED: METOCLOPRAMIDE 5 MG/ML, 2ML IVPush ONE (20:00)
[2018-10-05] MEDS ORDERED: SODIUM CHLORIDE FLUSH 10ML SYR IVF PRN (20:00)
[2018-10-05] MEDS ORDERED: METOCLOPRAMIDE 5 MG/ML, 2ML ONE (20:03)
--- NOTE | 2018-10-05 20:13 | NUR ---
PT. MEDICATED PER MAR FOR CONTINUED NAUSEA AND ABD PAIN. IVF CONTINUES TO INFUSE PER ORDER. PT. PLACED ON 1L O2 VIA NC WHEN PT. RESTING WITH EYES CLOSED O2 SAT DROPS TO 88-90%; INCREASE TO 93% WITH 1L.
--- NOTE | 2018-10-05 20:20 | NUR ---
REPORT TO JOSE CRUZ ELLIS. FLOOR READY FOR PT. TRANSPORT.
[2018-10-05] MEDS: niFEDipine ER 30 MG TABLET.ER PO SCH (20:30)
[2018-10-05] MEDS ORDERED: TEMPLATE NON-FORMULARY MED. (Sitagliptin Phosphate** (Januvia**) 50 MG) PO SCH (20:30)
[2018-10-05] MEDS: LEVOTHYROXINE 88 MCG TABLET PO SCH (20:30)
[2018-10-05] MEDS: ASPIRIN 81 MG TABLET EC PO SCH (21:00)
[2018-10-05] MEDS ORDERED: FLUTICASONE PROPIONATE NS SCH (21:00)
[2018-10-05] MEDS ORDERED: TEMPLATE NON-FORMULARY MED. (Budesonide/Formoterol Fumarate (Symbicort 160-4.5 Mcg Inhaler PO SCH (21:00)
[2018-10-05 21:45] VITALS: BP 129/76
[2018-10-05] MEDS ORDERED: BISACODYL 10 MG SUPP PR PRN (22:00)
[2018-10-05] MEDS ORDERED: LABETALOL 5 MG/ML SYRINGE IVPush PRN (22:00)
[2018-10-05] MEDS ORDERED: METOCLOPRAMIDE 5 MG/ML, 2ML IVPush PRN (22:00)
[2018-10-05] MEDS ORDERED: ALBUTEROL SULFATE 2.5 MG/3 ML NPPB SCH (22:00)
[2018-10-05] MEDS: OXYcodone/APAP 10/325MG TABLET PO PRN (22:20)
[2018-10-05] MEDS ORDERED: PROMETHAZINE 25 MG/ML, 1ML IM PRN (22:30)
[2018-10-05] MEDS ORDERED: MAALOX/HYOSCYAMINE/LIDOCAINE 45 ML BTL PO ONE (22:30)
[2018-10-05] MEDS: DULOXETINE 30 MG CAPSULE.DR PO SCH (22:48)
[2018-10-05] MEDS: ARIPIPRAZOLE 5 MG TABLET PO SCH (22:48)
[2018-10-05] MEDS: ATORVASTATIN 20 MG TABLET PO SCH (22:48)
[2018-10-05] MEDS: CALCIUM CARBONATE 500 MG TAB.CHEW PO SCH (22:48)
[2018-10-05] MEDS: LAMOTRIGINE 200 MG TABLET PO SCH (22:48)
[2018-10-05] MEDS: DOCUSATE 100 MG CAPSULE PO SCH (22:49)
[2018-10-06] MEDS: SODIUM CHLORIDE 0.9% 1,000 ML IV SCH ×2 (00:48→14:30)
[2018-10-06 01:33] VITALS: BP 123/68
[2018-10-06] MEDS: IPRATROPIUM 0.5 MG/2.5 ML INHA NPPB SCH ×4 (06:00→19:35)
[2018-10-06] MEDS: LEVOTHYROXINE 88 MCG TABLET PO SCH (06:07)
[2018-10-06 06:19] LABS: MEAN CORPUSCULAR HEMOGLOBIN 24.5 pg (27.0-34.8); MEAN CORPUSCULAR HGB CONC 31.6 g/dL (32.4-35.8); MEAN CORPUSCULAR VOLUME 77.6 fL (80-100); MEAN PLATELET VOLUME 7.5 fL (7.4-10.4); PLATELET COUNT 686 x10^3/uL (130-400); RED BLOOD COUNT 4.57 x10^6/uL (3.82-5.3); RED CELL DISTRIBUTION WIDTH 18.9 % (9.6-15.2)
[2018-10-06 06:28] LABS: ANION GAP 9 mmol/L (5-15); CALCIUM 8.6 mg/dL (8.5-10.1); CHLORIDE 102 mmol/L (98-107)
[2018-10-06 06:31] LABS: ALANINE AMINOTRANSFERASE 18 U/L (12-78); ALKALINE PHOSPHATASE 151 U/L (45-117); BILIRUBIN,TOTAL 0.4 mg/dL (0.2-1.0); CREATININE 0.91 mg/dL (0.55-1.02); TOTAL PROTEIN 7.1 g/dL (6.4-8.2)
[2018-10-06 06:48] LABS: MD YES
[2018-10-06 06:54] LABS: LYMPHS% (MANUAL) 2 % (22-44)
[2018-10-06 06:55] LABS: ANISOCYTOSIS 1+; MONOS#(MANUAL) 1.41 x10^3/uL (0.3-2.7); MONOS% (MANUAL) 4 % (2-9); SEG#(MANUAL) 33.09 x10^3/uL (1.8-6.8); SEGS% (MANUAL) 94 % (42-75)
[2018-10-06 06:56] LABS: <PLATELET ESTIMATE> INCREASED; <PLT MORPHOLOGY> NORMAL PLT MORPH; HYPOCHROMIA 1+; POLYCHROMASIA 1+
[2018-10-06 06:57] LABS: MICROCYTOSIS 1+
[2018-10-06] MEDS ORDERED: ALBUTEROL SULFATE 2.5 MG/3 ML NPPB SCH (07:00)
[2018-10-06] MEDS: BUDESONIDE 0.5 MG/2 ML INHA INH SCH ×2 (07:32→19:35)
[2018-10-06 07:55] VITALS: BP 143/74
[2018-10-06] MEDS: CEFTRIAXONE PMX 1GM/50ML 50 ML IV SCH ×2 (09:13→22:06)
[2018-10-06] MEDS: FAMOTIDINE 20 MG/2 ML IVPush SCH (09:13)
[2018-10-06] MEDS: INSULIN REGULAR 100 UNITS/ML, 3ML VIAL SQ-INSULIN SCH ×4 (09:14→22:06)
[2018-10-06] MEDS: CHOLECALCIFEROL 1,000 UNIT TABLET PO SCH (10:55)
[2018-10-06] MEDS: ASPIRIN 81 MG TABLET EC PO SCH ×2 (10:55→21:53)
[2018-10-06] MEDS: DULOXETINE 30 MG CAPSULE.DR PO SCH ×2 (10:55→21:53)
[2018-10-06] MEDS: DOCUSATE 100 MG CAPSULE PO SCH ×2 (10:55→21:53)
[2018-10-06] MEDS: LINAGLIPTIN 5 MG TAB PO SCH (10:55)
[2018-10-06] MEDS: CALCIUM CARBONATE 500 MG TAB.CHEW PO SCH ×2 (10:56→21:52)
[2018-10-06] MEDS: OXYcodone/APAP 10/325MG TABLET PO PRN (10:58)
[2018-10-06] MEDS: niFEDipine ER 30 MG TABLET.ER PO SCH (11:03)
[2018-10-06] MEDS: LAMOTRIGINE 200 MG TABLET PO SCH ×2 (11:03→21:53)
[2018-10-06 13:27] VITALS: BP 136/70
[2018-10-06 19:02] VITALS: BP 114/62
[2018-10-06] MEDS: ARIPIPRAZOLE 5 MG TABLET PO SCH (21:53)
[2018-10-06] MEDS: ATORVASTATIN 20 MG TABLET PO SCH (21:53)
[2018-10-07 00:35] VITALS: BP 99/56
[2018-10-07] MEDS: LEVOTHYROXINE 88 MCG TABLET PO SCH (05:10)
[2018-10-07] MEDS: ACETAMINOPHEN 325 MG TABLET PO PRN (05:34)
[2018-10-07] MEDS: IPRATROPIUM 0.5 MG/2.5 ML INHA NPPB SCH ×2 (06:00→20:20)
[2018-10-07 06:30] LABS: ALANINE AMINOTRANSFERASE 12 U/L (12-78); ALBUMIN 2.5 g/dL (3.4-5.0); ANION GAP 8 mmol/L (5-15); CALCIUM 8.4 mg/dL (8.5-10.1); CHLORIDE 101 mmol/L (98-107)
[2018-10-07 06:33] LABS: ALKALINE PHOSPHATASE 129 U/L (45-117); BILIRUBIN,TOTAL 0.3 mg/dL (0.2-1.0); CREATININE 0.77 mg/dL (0.55-1.02); TOTAL PROTEIN 6.5 g/dL (6.4-8.2)
[2018-10-07] MEDS: SODIUM CHLORIDE 0.9% 1,000 ML IV SCH ×2 (07:35→21:00)
[2018-10-07] MEDS: DOCUSATE 100 MG CAPSULE PO SCH ×2 (07:36→21:04)
[2018-10-07] MEDS: LINAGLIPTIN 5 MG TAB PO SCH (07:36)
[2018-10-07] MEDS: CHOLECALCIFEROL 1,000 UNIT TABLET PO SCH (07:36)
[2018-10-07] MEDS: FAMOTIDINE 20 MG/2 ML IVPush SCH (07:36)
[2018-10-07] MEDS: DULOXETINE 30 MG CAPSULE.DR PO SCH ×2 (07:36→21:04)
[2018-10-07] MEDS: ASPIRIN 81 MG TABLET EC PO SCH ×2 (07:37→21:04)
[2018-10-07] MEDS: CALCIUM CARBONATE 500 MG TAB.CHEW PO SCH ×2 (07:37→21:04)
[2018-10-07] MEDS: BUDESONIDE 0.5 MG/2 ML INHA INH SCH ×2 (07:46→20:20)
[2018-10-07 07:57] VITALS: BP 123/54
[2018-10-07] MEDS: niFEDipine ER 30 MG TABLET.ER PO SCH (08:03)
[2018-10-07] MEDS: LAMOTRIGINE 200 MG TABLET PO SCH ×2 (08:04→21:04)
[2018-10-07] MEDS: INSULIN REGULAR 100 UNITS/ML, 3ML VIAL SQ-INSULIN SCH ×4 (08:05→20:58)
[2018-10-07] MEDS ORDERED: ALBUTEROL SULFATE 2.5 MG/3 ML NPPB PRN (09:00)
[2018-10-07] MEDS: CEFTRIAXONE PMX 1GM/50ML 50 ML IV SCH ×2 (09:13→20:59)
[2018-10-07 12:10] VITALS: BP 129/67
[2018-10-07] MEDS ORDERED: POTASSIUM CHLORIDE 20 MEQ TAB.ER.PRT PO ONE (13:30)
[2018-10-07 14:46] LABS: MEAN CORPUSCULAR HEMOGLOBIN 24.7 pg (27.0-34.8); MEAN CORPUSCULAR HGB CONC 31.9 g/dL (32.4-35.8); MEAN CORPUSCULAR VOLUME 77.5 fL (80-100); MEAN PLATELET VOLUME 7.6 fL (7.4-10.4); PLATELET COUNT 466 x10^3/uL (130-400); RED BLOOD COUNT 3.55 x10^6/uL (3.82-5.3); RED CELL DISTRIBUTION WIDTH 19.2 % (9.6-15.2)
[2018-10-07 15:12] LABS: MD YES
[2018-10-07 15:15] LABS: ANISOCYTOSIS 1+; BAND#(MANUAL) 0.33 x10^3/uL; BANDS%(MANUAL) 1 % (0-7); HYPOCHROMIA 1+; LYMPH#(MANUAL) 0.65 x10^3/uL (1-3.4); LYMPHS% (MANUAL) 2 % (22-44); MICROCYTOSIS 1+; MONOS#(MANUAL) 0.98 x10^3/uL (0.3-2.7); MONOS% (MANUAL) 3 % (2-9); POLYCHROMASIA 1+; SEG#(MANUAL) 30.74 x10^3/uL (1.8-6.8); SEGS% (MANUAL) 94 % (42-75)
[2018-10-07 15:16] LABS: <PLATELET ESTIMATE> INCREASED; <PLT MORPHOLOGY> NORMAL PLT MORPH
[2018-10-07] MEDS ORDERED: PHARMACY INSTRUCTION MC PRN (15:30)
[2018-10-07] MEDS ORDERED: INSTRUCTION SEE COMMENTS XX PRN (15:30)
[2018-10-07] MEDS ORDERED: QUETIAPINE 25MG TABLET PO PRN (15:30)
[2018-10-07] MEDS ORDERED: OMNIPAQUE 350 MG/ML, 100ML BOTTLE ONE (16:41)
[2018-10-07 20:20] VITALS: BP 112/62
[2018-10-07] MEDS: ATORVASTATIN 20 MG TABLET PO SCH (21:04)
[2018-10-07] MEDS: ARIPIPRAZOLE 5 MG TABLET PO SCH (21:04)
[2018-10-07] MEDS: MELATONIN 3 MG TABLET PO SCH (21:04)
[2018-10-08] MEDS: LEVOTHYROXINE 88 MCG TABLET PO SCH (04:52)
[2018-10-08 06:27] LABS: ALANINE AMINOTRANSFERASE 11 U/L (12-78); ANION GAP 7 mmol/L (5-15); CALCIUM 8.3 mg/dL (8.5-10.1); CHLORIDE 110 mmol/L (98-107); CREATININE 0.78 mg/dL (0.55-1.02); MEAN CORPUSCULAR HEMOGLOBIN 24.7 pg (27.0-34.8); MEAN CORPUSCULAR VOLUME 77.3 fL (80-100); MEAN PLATELET VOLUME 7.9 fL (7.4-10.4); PLATELET COUNT 446 x10^3/uL (130-400); RED CELL DISTRIBUTION WIDTH 18.8 % (9.6-15.2)
[2018-10-08 06:28] LABS: ALKALINE PHOSPHATASE 105 U/L (45-117); BILIRUBIN,TOTAL 0.2 mg/dL (0.2-1.0); TOTAL PROTEIN 5.5 g/dL (6.4-8.2)
[2018-10-08 06:52] LABS: <PLATELET ESTIMATE> INCREASED; <PLT MORPHOLOGY> NORMAL PLT MORPH; ANISOCYTOSIS 1+; BAND#(MANUAL) 0.25 x10^3/uL; BANDS%(MANUAL) 1 % (0-7); EOS#(MANUAL) 0.25 x10^3/uL (0.0-0.4); EOS% (MANUAL) 1 % (1-7); HYPOCHROMIA 1+; LYMPH#(MANUAL) 1.96 x10^3/uL (1-3.4); LYMPHS% (MANUAL) 8 % (22-44); MD YES; MICROCYTOSIS 1+; MONOS#(MANUAL) 0.25 x10^3/uL (0.3-2.7); MONOS% (MANUAL) 1 % (2-9); POLYCHROMASIA 1+; SEG#(MANUAL) 21.81 x10^3/uL (1.8-6.8); SEGS% (MANUAL) 89 % (42-75)
[2018-10-08] MEDS: INSULIN REGULAR 100 UNITS/ML, 3ML VIAL SQ-INSULIN SCH ×4 (07:00→20:55)
[2018-10-08] MEDS: BUDESONIDE 0.5 MG/2 ML INHA INH SCH ×2 (07:37→21:00)
[2018-10-08] MEDS: IPRATROPIUM 0.5 MG/2.5 ML INHA NPPB SCH ×2 (07:37→21:00)
[2018-10-08 07:51] LABS: HEMOGLOBIN A1C 6.6 % (4.2-6.3)
[2018-10-08 08:01] VITALS: BP 106/53
[2018-10-08] MEDS: CALCIUM CARBONATE 500 MG TAB.CHEW PO SCH (10:18)
[2018-10-08] MEDS: CHOLECALCIFEROL 1,000 UNIT TABLET PO SCH (10:18)
[2018-10-08] MEDS: LAMOTRIGINE 200 MG TABLET PO SCH ×2 (10:18→20:53)
[2018-10-08] MEDS: DULOXETINE 30 MG CAPSULE.DR PO SCH ×2 (10:18→20:53)
[2018-10-08] MEDS: ASPIRIN 81 MG TABLET EC PO SCH ×2 (10:18→20:52)
[2018-10-08] MEDS: DOCUSATE 100 MG CAPSULE PO SCH ×2 (10:19→20:53)
[2018-10-08] MEDS: niFEDipine ER 30 MG TABLET.ER PO SCH (10:19)
[2018-10-08] MEDS: LINAGLIPTIN 5 MG TAB PO SCH (10:19)
[2018-10-08] MEDS: SODIUM CHLORIDE 0.9% 1,000 ML IV SCH (10:21)
[2018-10-08] MEDS: CEFTRIAXONE PMX 1GM/50ML 50 ML IV SCH ×2 (10:21→20:52)
[2018-10-08] MEDS ORDERED: POLYETHYLENE GLYCOL 17 GM PACKET PO ONE (10:30)
[2018-10-08] MEDS: ACETAMINOPHEN 325 MG TABLET PO PRN ×2 (10:58→20:54)
[2018-10-08] MEDS: IRON SUCROSE COMPLEX 100MG/5ML IV SCH (10:58)
[2018-10-08 13:59] VITALS: BP 118/56
[2018-10-08] MEDS ORDERED: SODIUM CHLORIDE 0.9% 1,000 ML IV SCH (17:30)
[2018-10-08 19:22] VITALS: BP 121/60
[2018-10-08] MEDS: ARIPIPRAZOLE 5 MG TABLET PO SCH (20:52)
[2018-10-08] MEDS: MELATONIN 3 MG TABLET PO SCH (20:52)
[2018-10-08] MEDS: ATORVASTATIN 20 MG TABLET PO SCH (20:54)
[2018-10-09 01:07] VITALS: BP 107/55
[2018-10-09] MEDS: SODIUM CHLORIDE 0.9% 1,000 ML IV SCH (05:46)
[2018-10-09] MEDS: LEVOTHYROXINE 88 MCG TABLET PO SCH (05:46)
[2018-10-09 06:25] LABS: BASOPHILS # (AUTO) 0.04 x10^3/uL (0-0.1); BASOPHILS % (AUTO) 0 % (0-1); EOSINOPHILS # (AUTO) 0.34 x10^3/uL (0-0.4); EOSINOPHILS % (AUTO) 2 % (1-7); LYMPHOCYTES # (AUTO) 1.55 x10^3/uL (1-3.4); LYMPHOCYTES % (AUTO) 9 % (22-44); MD NO; MEAN CORPUSCULAR HEMOGLOBIN 24.3 pg (27.0-34.8); MEAN CORPUSCULAR VOLUME 78.4 fL (80-100); MEAN PLATELET VOLUME 7.5 fL (7.4-10.4); MONOCYTES # (AUTO) 0.81 x10^3/uL (0.2-0.8); MONOCYTES % (AUTO) 5 % (2-9); NEUTROPHILS # (AUTO) 14.92 x10^3/uL (1.8-6.8); NEUTROPHILS % (AUTO) 85 % (42-75); PLATELET COUNT 402 x10^3/uL (130-400); RED BLOOD COUNT 3.52 x10^6/uL (3.82-5.3); RED CELL DISTRIBUTION WIDTH 18.7 % (9.6-15.2)
[2018-10-09 06:36] LABS: ANION GAP 8 mmol/L (5-15); CALCIUM 8.2 mg/dL (8.5-10.1); CHLORIDE 109 mmol/L (98-107); CREATININE 0.56 mg/dL (0.55-1.02)
[2018-10-09] MEDS: INSULIN REGULAR 100 UNITS/ML, 3ML VIAL SQ-INSULIN SCH ×4 (07:00→20:14)
[2018-10-09] MEDS: BUDESONIDE 0.5 MG/2 ML INHA INH SCH ×2 (07:04→19:06)
[2018-10-09] MEDS: IPRATROPIUM 0.5 MG/2.5 ML INHA NPPB SCH ×2 (07:04→19:06)
[2018-10-09 07:31] VITALS: BP 130/62
[2018-10-09] MEDS ORDERED: POTASSIUM CHLORIDE 20 MEQ TAB.ER.PRT PO ONE (08:30)
[2018-10-09] MEDS ORDERED: LIDOCAINE-MPF 1%, 5ML ONE (08:45)
[2018-10-09] MEDS ORDERED: NALOXONE 1 MG/ML, 2ML ONE (09:50)
[2018-10-09] MEDS ORDERED: MIDAZOLAM 1 MG/ML, 5ML ONE (09:50)
[2018-10-09] MEDS ORDERED: FENTANYL PF 100 MCG/2ML ONE (09:50)
[2018-10-09] MEDS ORDERED: FLUMAZENIL 0.1 MG/1 ML, 5ML ONE (09:50)
[2018-10-09] MEDS: DULOXETINE 30 MG CAPSULE.DR PO SCH ×2 (10:51→21:07)
[2018-10-09] MEDS: ASPIRIN 81 MG TABLET EC PO SCH ×2 (10:51→21:07)
[2018-10-09] MEDS: CHOLECALCIFEROL 1,000 UNIT TABLET PO SCH (10:52)
[2018-10-09] MEDS: CALCIUM CARBONATE 500 MG TAB.CHEW PO SCH (10:52)
[2018-10-09] MEDS: niFEDipine ER 30 MG TABLET.ER PO SCH (10:53)
[2018-10-09] MEDS: DOCUSATE 100 MG CAPSULE PO SCH ×2 (10:53→20:13)
[2018-10-09] MEDS: LINAGLIPTIN 5 MG TAB PO SCH (10:53)
[2018-10-09] MEDS: IRON SUCROSE COMPLEX 100MG/5ML IV SCH (10:54)
[2018-10-09] MEDS: LAMOTRIGINE 200 MG TABLET PO SCH ×2 (10:57→21:07)
[2018-10-09 13:20] VITALS: BP 142/65
[2018-10-09] MEDS: MELATONIN 3 MG TABLET PO SCH (21:07)
[2018-10-09] MEDS: ATORVASTATIN 20 MG TABLET PO SCH (21:07)
[2018-10-09] MEDS: ARIPIPRAZOLE 5 MG TABLET PO SCH (21:07)
[2018-10-09 21:14] VITALS: BP 145/65
[2018-10-10] MEDS: SODIUM CHLORIDE 0.9% 1,000 ML IV SCH ×2 (02:51→15:02)
[2018-10-10] MEDS: LEVOTHYROXINE 88 MCG TABLET PO SCH (04:18)
[2018-10-10] MEDS: ACETAMINOPHEN 325 MG TABLET PO PRN (04:18)
[2018-10-10 05:31] LABS: CALCIUM 8.2 mg/dL (8.5-10.1); CHLORIDE 107 mmol/L (98-107)
[2018-10-10 05:35] LABS: ANION GAP 7 mmol/L (5-15); CREATININE 0.44 mg/dL (0.55-1.02)
[2018-10-10 05:44] LABS: MEAN CORPUSCULAR HEMOGLOBIN 24.3 pg (27.0-34.8); MEAN CORPUSCULAR HGB CONC 31.1 g/dL (32.4-35.8); MEAN CORPUSCULAR VOLUME 78.2 fL (80-100); MEAN PLATELET VOLUME 7.5 fL (7.4-10.4); PLATELET COUNT 412 x10^3/uL (130-400); RED BLOOD COUNT 3.54 x10^6/uL (3.82-5.3); RED CELL DISTRIBUTION WIDTH 18.9 % (9.6-15.2)
[2018-10-10 06:21] LABS: BASOPHILS # (AUTO) 0.04 x10^3/uL (0-0.1); BASOPHILS % (AUTO) 0 % (0-1); EOSINOPHILS # (AUTO) 0.29 x10^3/uL (0-0.4); EOSINOPHILS % (AUTO) 2 % (1-7); LYMPHOCYTES # (AUTO) 1.16 x10^3/uL (1-3.4); LYMPHOCYTES % (AUTO) 9 % (22-44); MD MORPH REVIEW ONLY; MONOCYTES # (AUTO) 0.74 x10^3/uL (0.2-0.8); MONOCYTES % (AUTO) 6 % (2-9); NEUTROPHILS # (AUTO) 11.18 x10^3/uL (1.8-6.8); NEUTROPHILS % (AUTO) 83 % (42-75)
[2018-10-10 06:24] LABS: <PLATELET ESTIMATE> INCREASED; <PLT MORPHOLOGY> NORMAL PLT MORPH; ANISOCYTOSIS 2+; HYPOCHROMIA 1+; MICROCYTOSIS 1+; OVALOCYTES 1+; POLYCHROMASIA 1+
[2018-10-10 06:55] VITALS: BP 128/65
[2018-10-10] MEDS: INSULIN REGULAR 100 UNITS/ML, 3ML VIAL SQ-INSULIN SCH ×4 (07:00→21:00)
[2018-10-10] MEDS: DOCUSATE 100 MG CAPSULE PO SCH ×2 (09:00→19:52)
[2018-10-10] MEDS: IPRATROPIUM 0.5 MG/2.5 ML INHA NPPB SCH ×2 (09:00→20:40)
[2018-10-10] MEDS: BUDESONIDE 0.5 MG/2 ML INHA INH SCH ×2 (09:00→20:40)
[2018-10-10] MEDS: IRON SUCROSE COMPLEX 100MG/5ML IV SCH (09:47)
[2018-10-10] MEDS: niFEDipine ER 30 MG TABLET.ER PO SCH (09:47)
[2018-10-10] MEDS: LAMOTRIGINE 200 MG TABLET PO SCH ×2 (09:48→21:07)
[2018-10-10] MEDS: ASPIRIN 81 MG TABLET EC PO SCH ×2 (09:48→21:07)
[2018-10-10] MEDS: DULOXETINE 30 MG CAPSULE.DR PO SCH ×2 (09:48→21:07)
[2018-10-10] MEDS: CHOLECALCIFEROL 1,000 UNIT TABLET PO SCH (09:49)
[2018-10-10] MEDS: LINAGLIPTIN 5 MG TAB PO SCH (09:49)
[2018-10-10] MEDS: CALCIUM CARBONATE 500 MG TAB.CHEW PO SCH (09:50)
--- NOTE | 2018-10-10 10:41 | NUR ---
REC: Ground diet with thin liquids with 1:1 assistance for meals Addendum: 10/10/18 at 1042 by Melanie CHEN Amended: Links added.
[2018-10-10] MEDS ORDERED: POTASSIUM CHLORIDE 20 MEQ PACKET PO ONE (12:00)
[2018-10-10 12:50] VITALS: BP 155/68
[2018-10-10 18:56] VITALS: BP 152/70
[2018-10-10] MEDS: ARIPIPRAZOLE 5 MG TABLET PO SCH (21:07)
[2018-10-10] MEDS: ATORVASTATIN 20 MG TABLET PO SCH (21:07)
[2018-10-10] MEDS: MELATONIN 3 MG TABLET PO SCH (21:07)
[2018-10-11] MEDS: SODIUM CHLORIDE 0.9% 1,000 ML IV SCH (02:48)
[2018-10-11 04:23] LABS: BASOPHILS # (AUTO) 0.05 x10^3/uL (0-0.1); BASOPHILS % (AUTO) 0 % (0-1); EOSINOPHILS # (AUTO) 0.27 x10^3/uL (0-0.4); EOSINOPHILS % (AUTO) 3 % (1-7); LYMPHOCYTES # (AUTO) 1.29 x10^3/uL (1-3.4); LYMPHOCYTES % (AUTO) 12 % (22-44); MD NO; MEAN CORPUSCULAR HEMOGLOBIN 23.8 pg (27.0-34.8); MEAN CORPUSCULAR HGB CONC 30.2 g/dL (32.4-35.8); MEAN CORPUSCULAR VOLUME 78.9 fL (80-100); MEAN PLATELET VOLUME 7.4 fL (7.4-10.4); MONOCYTES # (AUTO) 0.74 x10^3/uL (0.2-0.8); MONOCYTES % (AUTO) 7 % (2-9); NEUTROPHILS # (AUTO) 8.38 x10^3/uL (1.8-6.8); NEUTROPHILS % (AUTO) 78 % (42-75); PLATELET COUNT 423 x10^3/uL (130-400); RED BLOOD COUNT 3.43 x10^6/uL (3.82-5.3); RED CELL DISTRIBUTION WIDTH 18.7 % (9.6-15.2)
[2018-10-11 04:30] LABS: ANION GAP 4 mmol/L (5-15); CALCIUM 7.8 mg/dL (8.5-10.1); CHLORIDE 109 mmol/L (98-107); CREATININE 0.49 mg/dL (0.55-1.02)
[2018-10-11] MEDS: LEVOTHYROXINE 88 MCG TABLET PO SCH (05:22)
[2018-10-11] MEDS: INSULIN REGULAR 100 UNITS/ML, 3ML VIAL SQ-INSULIN SCH ×4 (07:00→21:50)
[2018-10-11 08:00] VITALS: BP 150/69
[2018-10-11] MEDS ORDERED: POTASSIUM CHLORIDE 20 MEQ PACKET PO SCH (08:00)
[2018-10-11] MEDS: DOCUSATE 100 MG CAPSULE PO SCH ×2 (09:00→21:00)
[2018-10-11] MEDS: LAMOTRIGINE 200 MG TABLET PO SCH ×2 (09:57→21:50)
[2018-10-11] MEDS: ASPIRIN 81 MG TABLET EC PO SCH ×2 (09:57→21:50)
[2018-10-11] MEDS: CALCIUM CARBONATE 500 MG TAB.CHEW PO SCH (09:57)
[2018-10-11] MEDS: DULOXETINE 30 MG CAPSULE.DR PO SCH ×2 (09:58→21:49)
[2018-10-11] MEDS: niFEDipine ER 30 MG TABLET.ER PO SCH (09:58)
[2018-10-11] MEDS: LINAGLIPTIN 5 MG TAB PO SCH (09:58)
[2018-10-11] MEDS: CHOLECALCIFEROL 1,000 UNIT TABLET PO SCH (09:58)
[2018-10-11] MEDS: BUDESONIDE 0.5 MG/2 ML INHA INH SCH ×2 (10:08→19:26)
[2018-10-11] MEDS: IPRATROPIUM 0.5 MG/2.5 ML INHA NPPB SCH ×2 (10:08→19:26)
[2018-10-11] MEDS ORDERED: ACET325T14 PO (11:18)
[2018-10-11] MEDS ORDERED: LINA5TAB PO (11:18)
[2018-10-11 12:04] VITALS: BP 159/72
[2018-10-11 18:58] VITALS: BP 132/61
[2018-10-11] MEDS: ARIPIPRAZOLE 5 MG TABLET PO SCH (21:49)
[2018-10-11] MEDS: ATORVASTATIN 20 MG TABLET PO SCH (21:49)
[2018-10-11] MEDS: MELATONIN 3 MG TABLET PO SCH (21:50)
[2018-10-12] MEDS: LEVOTHYROXINE 88 MCG TABLET PO SCH (06:05)
[2018-10-12] MEDS: INSULIN REGULAR 100 UNITS/ML, 3ML VIAL SQ-INSULIN SCH ×4 (07:00→21:00)
[2018-10-12 08:00] VITALS: BP 128/62
[2018-10-12] MEDS: IPRATROPIUM 0.5 MG/2.5 ML INHA NPPB SCH ×2 (08:58→20:25)
[2018-10-12] MEDS: BUDESONIDE 0.5 MG/2 ML INHA INH SCH ×2 (08:58→20:25)
[2018-10-12] MEDS: DOCUSATE 100 MG CAPSULE PO SCH ×2 (09:00→20:59)
[2018-10-12] MEDS: LAMOTRIGINE 200 MG TABLET PO SCH ×2 (09:16→20:59)
[2018-10-12] MEDS: ASPIRIN 81 MG TABLET EC PO SCH ×2 (09:16→20:58)
[2018-10-12] MEDS: CHOLECALCIFEROL 1,000 UNIT TABLET PO SCH (09:16)
[2018-10-12] MEDS: niFEDipine ER 30 MG TABLET.ER PO SCH (09:17)
[2018-10-12] MEDS: POTASSIUM CHLORIDE 20 MEQ PACKET PO SCH ×2 (09:17→20:59)
[2018-10-12] MEDS: CALCIUM CARBONATE 500 MG TAB.CHEW PO SCH (09:17)
[2018-10-12] MEDS: DULOXETINE 30 MG CAPSULE.DR PO SCH ×2 (09:17→20:59)
[2018-10-12] MEDS: LINAGLIPTIN 5 MG TAB PO SCH (09:17)
[2018-10-12 13:56] VITALS: BP 116/62
[2018-10-12 19:21] VITALS: BP 112/61
[2018-10-12] MEDS: ARIPIPRAZOLE 5 MG TABLET PO SCH (20:58)
[2018-10-12] MEDS: ATORVASTATIN 20 MG TABLET PO SCH (20:58)
[2018-10-12] MEDS: MELATONIN 3 MG TABLET PO SCH (20:59)
[2018-10-13 05:40] LABS: BASOPHILS # (AUTO) 0.05 x10^3/uL (0-0.1); BASOPHILS % (AUTO) 1 % (0-1); EOSINOPHILS % (AUTO) 4 % (1-7); LYMPHOCYTES # (AUTO) 1.85 x10^3/uL (1-3.4); LYMPHOCYTES % (AUTO) 17 % (22-44); MD NO; MEAN CORPUSCULAR HEMOGLOBIN 24.4 pg (27.0-34.8); MEAN CORPUSCULAR HGB CONC 31.2 g/dL (32.4-35.8); MEAN CORPUSCULAR VOLUME 78.2 fL (80-100); MEAN PLATELET VOLUME 7.4 fL (7.4-10.4); MONOCYTES # (AUTO) 0.87 x10^3/uL (0.2-0.8); MONOCYTES % (AUTO) 8 % (2-9); NEUTROPHILS # (AUTO) 7.53 x10^3/uL (1.8-6.8); NEUTROPHILS % (AUTO) 70 % (42-75); PLATELET COUNT 471 x10^3/uL (130-400); RED BLOOD COUNT 3.71 x10^6/uL (3.82-5.3); RED CELL DISTRIBUTION WIDTH 18.6 % (9.6-15.2)
[2018-10-13 05:49] LABS: CHLORIDE 108 mmol/L (98-107)
[2018-10-13 05:58] LABS: ALANINE AMINOTRANSFERASE 10 U/L (12-78); ALBUMIN 2.4 g/dL (3.4-5.0); ALKALINE PHOSPHATASE 104 U/L (45-117); ANION GAP 5 mmol/L (5-15); BILIRUBIN,TOTAL 0.2 mg/dL (0.2-1.0); CALCIUM 8.5 mg/dL (8.5-10.1); CREATININE 0.57 mg/dL (0.55-1.02); TOTAL PROTEIN 6.1 g/dL (6.4-8.2)
[2018-10-13] MEDS: LEVOTHYROXINE 88 MCG TABLET PO SCH (06:02)
[2018-10-13 07:00] VITALS: BP 131/68
[2018-10-13] MEDS: INSULIN REGULAR 100 UNITS/ML, 3ML VIAL SQ-INSULIN SCH ×2 (07:00→11:00)
[2018-10-13] MEDS: IPRATROPIUM 0.5 MG/2.5 ML INHA NPPB SCH (07:40)
[2018-10-13] MEDS: BUDESONIDE 0.5 MG/2 ML INHA INH SCH (07:40)
[2018-10-13] MEDS: CALCIUM CARBONATE 500 MG TAB.CHEW PO SCH (09:30)
[2018-10-13] MEDS: DOCUSATE 100 MG CAPSULE PO SCH (09:30)
[2018-10-13] MEDS: ASPIRIN 81 MG TABLET EC PO SCH (09:30)
[2018-10-13] MEDS: POTASSIUM CHLORIDE 20 MEQ PACKET PO SCH (09:30)
[2018-10-13] MEDS: LAMOTRIGINE 200 MG TABLET PO SCH (09:30)
[2018-10-13] MEDS: DULOXETINE 30 MG CAPSULE.DR PO SCH (09:30)
[2018-10-13] MEDS: niFEDipine ER 30 MG TABLET.ER PO SCH (09:30)
[2018-10-13] MEDS: CHOLECALCIFEROL 1,000 UNIT TABLET PO SCH (09:30)
[2018-10-13] MEDS: LINAGLIPTIN 5 MG TAB PO SCH (09:30)
== END 2018-10-13 15:42 | DRG 871 ==
LOC: ED 15:52 → EDIP 19:55 → 3NE 20:35 → 4WST 10-06 02:18
PROVIDERS: ADMIT Hospitalist; ATTEND Hospitalist
PROC: 07DR3ZX Extraction of Iliac Bone Marrow, Percutaneous Approach, Diagnostic (ICD-10-PCS; principal; 2018-10-09)
DX: A41.9 Sepsis, unspecified organism (principal); N17.0 Acute kidney failure with tubular necrosis; F33.0 Major depressive disorder, recurrent, mild; F11.20 Opioid dependence, uncomplicated; G93.40 Encephalopathy, unspecified; E11.65 Type 2 diabetes mellitus with hyperglycemia; M41.86 Other forms of scoliosis, lumbar region; E78.00 Pure hypercholesterolemia, unspecified; J44.9 Chronic obstructive pulmonary disease, unspecified; E03.9 Hypothyroidism, unspecified; I10 Essential (primary) hypertension; I25.10 Atherosclerotic heart disease of native coronary artery without angina pectoris; E78.5 Hyperlipidemia, unspecified; E11.51 Type 2 diabetes mellitus with diabetic peripheral angiopathy without gangrene; G89.29 Other chronic pain; F41.9 Anxiety disorder, unspecified; K59.09 Other constipation; Z66 Do not resuscitate; D50.9 Iron deficiency anemia, unspecified; E87.6 Hypokalemia; B95.1 Streptococcus, group B, as the cause of diseases classified elsewhere; Z85.118 Personal history of other malignant neoplasm of bronchus and lung; Z90.710 Acquired absence of both cervix and uterus; Z95.1 Presence of aortocoronary bypass graft; Z90.2 Acquired absence of lung [part of]; Z90.49 Acquired absence of other specified parts of digestive tract; Z91.040 Latex allergy status; Z88.5 Allergy status to narcotic agent; Z88.2 Allergy status to sulfonamides; Z88.8 Allergy status to other drugs, medicaments and biological substances; Z79.899 Other long term (current) drug therapy
CPT/HCPCS: 36415; 38222; 70450; 71045; 71275; 74177; 76770; 77012; 80048; 80053; 81001; 82140; 82607; 82728; 82962; 83036; 83540; 83550; 83605; 83690; 83735; 84145; 84443; 84466; 85025; 85060; 85097; 87040; 87086; 87147; 88237; 88264; 88280; 88305; 88311; 88313; 93005; 94640; 96365; 96375; 99156; 99157; 99285; G0378; J0696; J1756; J1815; J2250; J2405; J2550; J3010; J7613; J7626; J7644; Q9967; 92523-GN; J2310; J2765; J3490; J7030

== ENCOUNTER 2018-10-23 10:07 | Inpatient (IN) | payer MEDICARE, MEDICAID, OTHER ==
[~2018-10-23] VITALS: Ht 149.9 cm; Wt 47.8 kg
[~2018-10-23 10:07] MED LIST changes: +ACET325T14 PO; +LINA5TAB PO
--- NOTE | 2018-10-23 10:20 | NUR ---
BIB [facility] FROM [facility] FOR ABD PAINX3 DAYS AND NAUSEA, RECENT HX OF BOWEL OBSTRUCTION/COLON RESECTION 07/22, PT GIVEN FENTANYL 100MCG INTRANASAL AND ZOFRAN PO. BS 199. SON AT BEDSIDE. PT AOX4, HR 101 VS OTHERWISE STABLE ON RA.
--- NOTE | 2018-10-23 11:20 | NUR ---
PT RESTING IN [facility] IV NEEDED FOR CT. PT ATTEMPTED TO PEE FOR UA BUT CANNOT AT THIS TIME, REFUSING STRAIGHT CATH AT THIS TIME PT EDUCATED AND WOULD LIKE TO ATTEMPT TO PEE AGAIN AFTER CT BEFORE WE STRAIGHT CATH. SON AT BEDSIDE. NAD, VSS ON RA, WCTM
[2018-10-23 11:28] LABS: MEAN CORPUSCULAR HEMOGLOBIN 24.5 pg (27.0-34.8); MEAN CORPUSCULAR HGB CONC 30.9 g/dL (32.4-35.8); MEAN CORPUSCULAR VOLUME 79.1 fL (80-100); MEAN PLATELET VOLUME 8.8 fL (7.4-10.4); PLATELET COUNT 607 x10^3/uL (130-400); RED BLOOD COUNT 4.61 x10^6/uL (3.82-5.3); RED CELL DISTRIBUTION WIDTH 24.8 % (9.6-15.2)
[2018-10-23 11:30] LABS: ALANINE AMINOTRANSFERASE 17 U/L (12-78); ALBUMIN 3.5 g/dL (3.4-5.0); ANION GAP 9 mmol/L (5-15); CALCIUM 9.1 mg/dL (8.5-10.1); CHLORIDE 100 mmol/L (98-107); CREATININE 0.77 mg/dL (0.55-1.02)
[2018-10-23 11:33] LABS: ALKALINE PHOSPHATASE 116 U/L (45-117); BILIRUBIN,TOTAL 0.7 mg/dL (0.2-1.0); TOTAL PROTEIN 7.4 g/dL (6.4-8.2)
[2018-10-23 11:34] LABS: MD YES
[2018-10-23 11:36] LABS: <PLATELET ESTIMATE> INCREASED; ANISOCYTOSIS 1+; BAND#(MANUAL) 1.04 x10^3/uL; BANDS%(MANUAL) 5 % (0-7); HYPOCHROMIA 1+; LYMPH#(MANUAL) 1.46 x10^3/uL (1-3.4); LYMPHS% (MANUAL) 7 % (22-44); MICROCYTOSIS 1+; MONOS#(MANUAL) 0.83 x10^3/uL (0.3-2.7); MONOS% (MANUAL) 4 % (2-9); OVALOCYTES 1+; SEG#(MANUAL) 17.47 x10^3/uL (1.8-6.8); SEGS% (MANUAL) 84 % (42-75)
[2018-10-23 11:37] LABS: <PLT MORPHOLOGY> NORMAL PLT MORPH
--- NOTE | 2018-10-23 12:20 | NUR ---
CT NOTIFIED PT HAS IV AND IS READY FOR CT. PT RESTING IN GURNEY WITH SON AT BEDSIDE. VSS. NAD, CALL LIGHT WITHIN REACH
--- NOTE | 2018-10-23 13:10 | NUR ---
PT TO CT
[2018-10-23 13:53] LABS: MICROSCOPIC AUTO
[2018-10-23 13:54] LABS: CULTURE INDICATED? NO
[2018-10-23] MEDS ORDERED: SODIUM CHLORIDE 0.9% 1,000 ML IV ONE ×2 (14:21→14:41)
[2018-10-23] MEDS ORDERED: MORPHINE SULFATE 4 MG/ML, 1ML ONE ×2 (14:25→14:59)
[2018-10-23] MEDS ORDERED: ONDANSETRON 2MG/ML, 2ML ONE (14:25)
[2018-10-23] MEDS: MORPHINE SULFATE 4 MG/ML, 1ML IVPush PRN ×2 (14:29→15:02)
[2018-10-23] MEDS ORDERED: METRONIDAZOLE PMX 500MG/100ML 100 ML IVPB ONE (14:30)
[2018-10-23] MEDS ORDERED: CEFEPIME 2 GM in DEXTROSE 5% 100 ML IVPB ONE (14:30)
[2018-10-23] MEDS ORDERED: SODIUM CHLORIDE FLUSH 10ML SYR IVF ONE (14:30)
[2018-10-23] MEDS ORDERED: ONDANSETRON 2MG/ML, 2ML IVPush ONE (14:30)
[2018-10-23] MEDS ORDERED: SODIUM CHLORIDE 0.9% 1,000ML IVBOLUS ONE (14:30)
--- NOTE | 2018-10-23 14:32 | NUR ---
PT REPORTS INCREASED PAIN AT THIS TIME, MEDICATED ACCORDING TO ORDERS. FAMILY AT BEDSIDE. MADE AWARE OF PLAN.
[2018-10-23] MEDS ORDERED: METRONIDAZOLE PMX 500MG/100ML 100 ML ONE (14:45)
[2018-10-23] MEDS: CEFEPIME 2 GM in DEXTROSE 5% 100 ML IV SCH ×2 (15:00→23:08)
[2018-10-23] MEDS ORDERED: SODIUM CHLORIDE FLUSH 10ML SYR IVF PRN (15:00)
--- NOTE | 2018-10-23 15:05 | NUR ---
Pt denies relief of pain after inital dose of morphine, 2nd dose given at this time. Pt aware of plan for OR, family at bedside and hospitalist to see patient.
--- NOTE | 2018-10-23 15:13 | NUR ---
REPORT GIVEN TO OR
[2018-10-23 15:24] LABS: INTERNATIONAL NORMALIZED RATIO 0.95 (0.93-1.1)
[2018-10-23] MEDS ORDERED: GLUCAGON 1 MG IM PRN (15:30)
[2018-10-23] MEDS ORDERED: ONDANSETRON 2MG/ML, 2ML IVPush PRN (15:30)
[2018-10-23] MEDS ORDERED: ACETAMINOPHEN 1,000 MG/100 ML IV IVPB PRN (15:30)
[2018-10-23] MEDS ORDERED: SODIUM CHLORIDE 0.9% 1,000 ML IV SCH (15:30)
[2018-10-23] MEDS ORDERED: DEXTROSE 4 GM TAB.CHEW PO PRN (15:30)
[2018-10-23] MEDS ORDERED: DEXTROSE 50%, 50ML SYRINGE IVPush PRN (15:30)
[2018-10-23] MEDS ORDERED: HEPARIN 1,000 UNITS/ML, 30ML ONE (15:34)
[2018-10-23] MEDS: IPRATROPIUM 0.5 MG/2.5 ML INHA NPPB SCH ×2 (16:00→22:00)
[2018-10-23] MEDS: INSULIN LISPRO 100 UNITS/ML, PEN SQ-INSULIN SCH ×2 (16:00→21:00)
[2018-10-23] MEDS ORDERED: FENTANYL PF 250 MCG/5ML ONE (16:16)
[2018-10-23] MEDS ORDERED: PHENYLEPHRINE 10 MG/ML ONE (16:31)
[2018-10-23] MEDS ORDERED: SUCCINYLCHOLINE 20 MG/ML, 10ML ONE (16:31)
[2018-10-23] MEDS ORDERED: ROCURONIUM 10 MG/ML,10ML ONE (16:31)
[2018-10-23] MEDS ORDERED: PROPOFOL 10 MG/ML, 20ML ONE (16:31)
[2018-10-23] MEDS ORDERED: PROTAMINE SULFATE 10 MG/ML, 5ML ONE (16:36)
[2018-10-23] MEDS ORDERED: THROMBIN 20,000 UNIT VIAL TP ONE (16:36)
[2018-10-23] MEDS ORDERED: HEPARIN 1,000 UNITS/ML, 10ML ONE (16:43)
[2018-10-23] MEDS ORDERED: MAGNESIUM SULFATE PMX 2GM/50ML 50 ML IV ONE (17:30)
[2018-10-23] MEDS ORDERED: VISIPAQUE 320MG/ML, 50ML BOTTLE IV ONE (18:00)
[2018-10-23] MEDS ORDERED: MIDAZOLAM 1 MG/ML, 2ML ONE (19:13)
[2018-10-23] MEDS ORDERED: PROPOFOL 100 ML IV ONE (19:36)
[2018-10-23] MEDS: PROPOFOL 100 ML IV PRN (19:40)
[2018-10-23 20:14] VITALS: BP 138/54
[2018-10-23 20:30] VITALS: BP 122/41
[2018-10-23] MEDS ORDERED: DO NOT STOP ANTIBIOTICS AFTER 24HRS MC SCH (20:30)
[2018-10-23] MEDS ORDERED: DIPHENHYDRAMINE 25 MG CAPSULE PO PRN (20:30)
[2018-10-23] MEDS ORDERED: DIPHENHYDRAMINE 50 MG/ML, 1ML IV PRN (20:30)
[2018-10-23] MEDS ORDERED: ACETAMINOPHEN 650 MG SUPP PR PRN (20:30)
[2018-10-23] MEDS ORDERED: SODIUM CHLORIDE 0.9%, 500ML IV PRN (20:30)
[2018-10-23] MEDS: BUDESONIDE 0.5 MG/2 ML INHA NPPB SCH (21:00)
[2018-10-23] MEDS: CEFOTETAN PMX 2GM/50ML 50 ML IVPB SCH (21:12)
[2018-10-23] MEDS ORDERED: LIDOCAINE-MPF 1%, 2ML ENDO PRN (21:30)
[2018-10-23] MEDS ORDERED: PHARMACY MAY ADJ FOR RENAL FX MC SCH (21:30)
[2018-10-23] MEDS: INSULIN REGULAR, HUMAN 100 UNIT/ML 3ML VIAL LOW DOSE SS SQ-INSULIN SCH (21:32)
[2018-10-23] MEDS: D5%-LACTATED RINGERS 1,000 ML IV SCH (21:33)
[2018-10-23] MEDS: SODIUM CHLORIDE FLUSH 10ML SYR IVF SCH (21:33)
[2018-10-23] MEDS ORDERED: FAMOTIDINE 20 MG/2 ML ONE (21:35)
[2018-10-23] MEDS: FAMOTIDINE 20 MG/2 ML IV SCH (21:40)
[2018-10-23] MEDS: ENOXAPARIN 40 MG/0.4 ML SQ SCH (21:41)
[2018-10-23] MEDS ORDERED: ALBUTEROL/IPRATROPIUM 2.5MG/0.5MG, 3 ML ONE (22:09)
[2018-10-23 22:30] VITALS: BP 133/52
[2018-10-23 22:34] LABS: ANION GAP 8 mmol/L (5-15); CALCIUM 7.3 mg/dL (8.5-10.1); CHLORIDE 109 mmol/L (98-107)
[2018-10-23 22:36] VITALS: BP 172/71
[2018-10-23] MEDS: FENTANYL PF 100 MCG/2ML IVPush PRN (23:24)
[2018-10-24] MEDS: METRONIDAZOLE PMX 500MG/100ML 100 ML IV SCH ×2 (00:01→07:30)
[2018-10-24] MEDS: PROPOFOL 100 ML IV PRN ×4 (01:53→22:34)
[2018-10-24] MEDS: ALBUTEROL/IPRATROPIUM 2.5MG/0.5MG, 3 ML INLINE SCH ×6 (02:42→22:32)
[2018-10-24] MEDS: INSULIN REGULAR, HUMAN 100 UNIT/ML 3ML VIAL LOW DOSE SS SQ-INSULIN SCH (03:50)
[2018-10-24 04:18] LABS: ALANINE AMINOTRANSFERASE 16 U/L (12-78); ALBUMIN 2.1 g/dL (3.4-5.0); ANION GAP 8 mmol/L (5-15); CALCIUM 7.3 mg/dL (8.5-10.1); CHLORIDE 108 mmol/L (98-107); CREATININE 0.92 mg/dL (0.55-1.02)
[2018-10-24 04:20] LABS: ALKALINE PHOSPHATASE 84 U/L (45-117); BILIRUBIN,TOTAL 0.3 mg/dL (0.2-1.0)
[2018-10-24] MEDS: FENTANYL PF 100 MCG/2ML IVPush PRN ×6 (04:45→20:19)
[2018-10-24] MEDS: D5%-LACTATED RINGERS 1,000 ML IV SCH (06:22)
[2018-10-24] MEDS: CEFEPIME 2 GM in DEXTROSE 5% 100 ML IV SCH (07:40)
[2018-10-24] MEDS: BUDESONIDE 0.5 MG/2 ML INHA NPPB SCH ×2 (07:41→18:40)
[2018-10-24] MEDS: CEFOTETAN PMX 2GM/50ML 50 ML IVPB SCH ×2 (08:33→21:25)
[2018-10-24] MEDS: FAMOTIDINE 20 MG/2 ML IV SCH ×2 (08:33→21:24)
[2018-10-24] MEDS: SODIUM CHLORIDE FLUSH 10ML SYR IVF SCH ×2 (08:34→20:19)
[2018-10-24 09:15] LABS: MD YES; MEAN CORPUSCULAR HEMOGLOBIN 26.2 pg (27.0-34.8); MEAN CORPUSCULAR HGB CONC 31.7 g/dL (32.4-35.8); MEAN CORPUSCULAR VOLUME 82.6 fL (80-100); PLATELET COUNT 463 x10^3/uL (130-400); RED CELL DISTRIBUTION WIDTH 24.8 % (9.6-15.2)
[2018-10-24 09:32] LABS: <PLATELET ESTIMATE> INCREASED; <PLT MORPHOLOGY> NORMAL PLT MORPH; ANISOCYTOSIS 1+; BAND#(MANUAL) 1.57 x10^3/uL; BANDS%(MANUAL) 18 % (0-7); EOS#(MANUAL) 0.17 x10^3/uL (0.0-0.4); EOS% (MANUAL) 2 % (1-7); HYPOCHROMIA 1+; LYMPH#(MANUAL) 1.57 x10^3/uL (1-3.4); LYMPHS% (MANUAL) 18 % (22-44); MONOS#(MANUAL) 0.61 x10^3/uL (0.3-2.7); MONOS% (MANUAL) 7 % (2-9); OVALOCYTES 1+; SEG#(MANUAL) 4.79 x10^3/uL (1.8-6.8); SEGS% (MANUAL) 55 % (42-75)
[2018-10-24 09:34] LABS: POLYCHROMASIA 1+
[2018-10-24] MEDS: POTASSIUM CHLORIDE 20 MEQ in SODIUM CHLORIDE 0.9% 1,000 ML IV SCH ×2 (09:42→18:02)
[2018-10-24] MEDS ORDERED: SODIUM CHLORIDE 0.9%, 500ML IVBOLUS ONE ×2 (16:30→22:00)
[2018-10-24] MEDS: ENOXAPARIN 40 MG/0.4 ML SQ SCH (21:24)
[2018-10-25] MEDS ORDERED: SODIUM CHLORIDE 0.9%, 500ML IVBOLUS ONE (00:45)
[2018-10-25] MEDS: FENTANYL PF 100 MCG/2ML IVPush PRN ×4 (02:37→23:49)
[2018-10-25] MEDS: ALBUTEROL/IPRATROPIUM 2.5MG/0.5MG, 3 ML INLINE SCH ×6 (02:50→22:14)
[2018-10-25] MEDS: POTASSIUM CHLORIDE 20 MEQ in SODIUM CHLORIDE 0.9% 1,000 ML IV SCH ×3 (03:56→23:14)
[2018-10-25 04:54] LABS: MEAN CORPUSCULAR HGB CONC 32.6 g/dL (32.4-35.8); MEAN CORPUSCULAR VOLUME 82.9 fL (80-100); MEAN PLATELET VOLUME 8.5 fL (7.4-10.4); PLATELET COUNT 338 x10^3/uL (130-400); RED BLOOD COUNT 3.19 x10^6/uL (3.82-5.3); RED CELL DISTRIBUTION WIDTH 24.4 % (9.6-15.2)
[2018-10-25 05:38] LABS: MD YES
[2018-10-25 05:42] LABS: ANISOCYTOSIS 1+; BAND#(MANUAL) 0.53 x10^3/uL; BANDS%(MANUAL) 8 % (0-7); HYPOCHROMIA 1+; LYMPH#(MANUAL) 1.06 x10^3/uL (1-3.4); LYMPHS% (MANUAL) 16 % (22-44); MONOS#(MANUAL) 0.46 x10^3/uL (0.3-2.7); MONOS% (MANUAL) 7 % (2-9); SEG#(MANUAL) 4.55 x10^3/uL (1.8-6.8); SEGS% (MANUAL) 69 % (42-75)
[2018-10-25 05:43] LABS: OVALOCYTES 1+
[2018-10-25 05:44] LABS: <PLATELET ESTIMATE> ADEQUATE; <PLT MORPHOLOGY> NORMAL PLT MORPH; POLYCHROMASIA 1+
[2018-10-25] MEDS: BUDESONIDE 0.5 MG/2 ML INHA NPPB SCH ×2 (07:00→22:14)
[2018-10-25 07:47] LABS: CREATININE 0.86 mg/dL (0.55-1.02)
[2018-10-25 07:55] LABS: ANION GAP 8 mmol/L (5-15); CHLORIDE 117 mmol/L (98-107)
[2018-10-25] MEDS ORDERED: MAGNESIUM SULFATE PMX 2GM/50ML 50 ML IV ONE ×2 (08:00→12:00)
[2018-10-25] MEDS ORDERED: POTASSIUM CHLORIDE 40 MEQ in SODIUM CHLORIDE 0.9% 100 ML IV ONE (08:00)
[2018-10-25] MEDS: FAMOTIDINE 20 MG/2 ML IV SCH ×2 (08:19→21:03)
[2018-10-25] MEDS: SODIUM CHLORIDE FLUSH 10ML SYR IVF SCH ×2 (09:40→21:03)
[2018-10-25] MEDS: CEFOTETAN PMX 2GM/50ML 50 ML IVPB SCH ×2 (09:40→21:03)
[2018-10-25] MEDS ORDERED: MIDAZOLAM 1 MG/ML, 2ML ONE (10:11)
[2018-10-25] MEDS ORDERED: FENTANYL PF 250 MCG/5ML ONE (10:11)
[2018-10-25] MEDS ORDERED: ROCURONIUM 10MG/ML,5ML ONE (10:12)
[2018-10-25] MEDS ORDERED: PROPOFOL 10 MG/ML, 20ML ONE (10:37)
[2018-10-25] MEDS: PROPOFOL 100 ML IV PRN (14:29)
--- NOTE | 2018-10-25 15:41 | NUR ---
TF goal: Vital AF @ 40 ml/hour on propoful and 45 ml/hour off propoful
[2018-10-25] MEDS: ENOXAPARIN 40 MG/0.4 ML SQ SCH (21:03)
[2018-10-25] MEDS: FENTANYL PF 2,500 MCG in SODIUM CHLORIDE 0.9% 200 ML IV SCH (23:49)
[2018-10-26] MEDS ORDERED: SODIUM CHLORIDE 0.9%, 500ML IVBOLUS ONE
[2018-10-26] MEDS: ALBUTEROL/IPRATROPIUM 2.5MG/0.5MG, 3 ML INLINE SCH ×2 (02:18→06:20)
[2018-10-26 04:44] LABS: ANION GAP 5 mmol/L (5-15); CALCIUM 7.3 mg/dL (8.5-10.1); CHLORIDE 118 mmol/L (98-107); CREATININE 0.78 mg/dL (0.55-1.02); TRIGLYCERIDES 171 mg/dL (50-200)
[2018-10-26 05:08] LABS: MEAN CORPUSCULAR HEMOGLOBIN 26.2 pg (27.0-34.8); MEAN CORPUSCULAR HGB CONC 31.8 g/dL (32.4-35.8); MEAN CORPUSCULAR VOLUME 82.3 fL (80-100); MEAN PLATELET VOLUME 8.8 fL (7.4-10.4); PLATELET COUNT 376 x10^3/uL (130-400); RED BLOOD COUNT 3.48 x10^6/uL (3.82-5.3); RED CELL DISTRIBUTION WIDTH 24.7 % (9.6-15.2)
[2018-10-26 05:39] LABS: MD YES
[2018-10-26 05:44] LABS: <PLATELET ESTIMATE> ADEQUATE; <PLT MORPHOLOGY> NORMAL PLT MORPH; ANISOCYTOSIS 1+; BAND#(MANUAL) 0.18 x10^3/uL; BANDS%(MANUAL) 2 % (0-7); HYPOCHROMIA 1+; LYMPH#(MANUAL) 0.72 x10^3/uL (1-3.4); LYMPHS% (MANUAL) 8 % (22-44); MONOS#(MANUAL) 0.09 x10^3/uL (0.3-2.7); MONOS% (MANUAL) 1 % (2-9); OVALOCYTES 1+; POLYCHROMASIA 1+; SEG#(MANUAL) 8.01 x10^3/uL (1.8-6.8); SEGS% (MANUAL) 89 % (42-75)
[2018-10-26] MEDS: BUDESONIDE 0.5 MG/2 ML INHA NPPB SCH ×2 (06:20→19:30)
[2018-10-26] MEDS: PROPOFOL 100 ML IV PRN (06:53)
[2018-10-26] MEDS: CEFOTETAN PMX 2GM/50ML 50 ML IVPB SCH (09:13)
[2018-10-26] MEDS: SODIUM CHLORIDE FLUSH 10ML SYR IVF SCH ×2 (09:13→20:24)
[2018-10-26] MEDS ORDERED: SODIUM CHLORIDE 0.45% 1,000 ML IV SCH (10:00)
[2018-10-26] MEDS ORDERED: ALBUTEROL/IPRATROPIUM 2.5MG/0.5MG, 3 ML NPPB PRN (10:00)
[2018-10-26] MEDS: hydrALAzine 20 MG/ML, 1ML IV PRN (20:27)
[2018-10-26] MEDS: FENTANYL PF 100 MCG/2ML IVPush PRN (20:27)
[2018-10-26] MEDS ORDERED: FAMOTIDINE 20 MG/2 ML IV SCH (21:00)
[2018-10-26] MEDS: ENOXAPARIN 40 MG/0.4 ML SQ SCH (22:02)
[2018-10-26] MEDS: FENTANYL PF 2,500 MCG in SODIUM CHLORIDE 0.9% 200 ML IV SCH (22:30)
[2018-10-27] MEDS: SODIUM CHLORIDE 0.45% 1,000 ML IV SCH ×2 (00:22→20:24)
[2018-10-27 04:37] LABS: MEAN CORPUSCULAR HGB CONC 31.7 g/dL (32.4-35.8); MEAN CORPUSCULAR VOLUME 81.9 fL (80-100); PLATELET COUNT 444 x10^3/uL (130-400); RED BLOOD COUNT 3.41 x10^6/uL (3.82-5.3); RED CELL DISTRIBUTION WIDTH 25.1 % (9.6-15.2)
[2018-10-27 04:47] LABS: MD YES
[2018-10-27 04:49] LABS: ALBUMIN 1.7 g/dL (3.4-5.0); ANION GAP 6 mmol/L (5-15); CALCIUM 7.6 mg/dL (8.5-10.1); CHLORIDE 111 mmol/L (98-107)
[2018-10-27 04:53] LABS: ANISOCYTOSIS 1+; EOS#(MANUAL) 0.36 x10^3/uL (0.0-0.4); EOS% (MANUAL) 4 % (1-7); LYMPH#(MANUAL) 1.53 x10^3/uL (1-3.4); LYMPHS% (MANUAL) 17 % (22-44); MONOS#(MANUAL) 0.36 x10^3/uL (0.3-2.7); MONOS% (MANUAL) 4 % (2-9); SEG#(MANUAL) 6.75 x10^3/uL (1.8-6.8); SEGS% (MANUAL) 75 % (42-75)
[2018-10-27 04:54] LABS: <PLATELET ESTIMATE> ADEQUATE; <PLT MORPHOLOGY> NORMAL PLT MORPH; HYPOCHROMIA 1+; OVALOCYTES 1+; POLYCHROMASIA 1+
[2018-10-27 04:59] LABS: ALANINE AMINOTRANSFERASE 11 U/L (12-78); ALKALINE PHOSPHATASE 112 U/L (45-117); BILIRUBIN,TOTAL 0.4 mg/dL (0.2-1.0); TOTAL PROTEIN 4.5 g/dL (6.4-8.2)
[2018-10-27] MEDS: FENTANYL PF 100 MCG/2ML IVPush PRN (05:06)
[2018-10-27] MEDS: BUDESONIDE 0.5 MG/2 ML INHA NPPB SCH ×2 (07:52→21:00)
[2018-10-27] MEDS: SODIUM CHLORIDE FLUSH 10ML SYR IVF SCH ×2 (09:00→20:23)
[2018-10-27] MEDS: ACETAMINOPHEN 325 MG TABLET PO PRN ×2 (13:55→20:24)
[2018-10-27 18:51] VITALS: BP 180/72
[2018-10-27] MEDS: FAMOTIDINE 20 MG/2 ML IV SCH (20:23)
[2018-10-27] MEDS: morphine SULFATE 10 MG/ML, 1ML IVPush PRN (20:24)
[2018-10-27] MEDS ORDERED: METOCLOPRAMIDE 5 MG/ML, 2ML IVPush PRN (20:30)
[2018-10-27] MEDS: SIMETHICONE 125 MG CHEW TAB PO SCH (21:13)
[2018-10-27] MEDS: hydrALAzine 20 MG/ML, 1ML IV PRN (21:14)
[2018-10-27] MEDS: ENOXAPARIN 40 MG/0.4 ML SQ SCH (21:25)
[2018-10-28] MEDS: SODIUM CHLORIDE 0.45% 1,000 ML IV SCH ×2 (01:40→19:30)
[2018-10-28] MEDS: morphine SULFATE 10 MG/ML, 1ML IVPush PRN (03:46)
[2018-10-28] MEDS: ACETAMINOPHEN 325 MG TABLET PO PRN (03:46)
[2018-10-28 04:05] VITALS: BP 167/64
[2018-10-28 05:35] LABS: ALBUMIN 2.1 g/dL (3.4-5.0); CALCIUM 8.2 mg/dL (8.5-10.1); CHLORIDE 107 mmol/L (98-107)
[2018-10-28 05:40] LABS: ALANINE AMINOTRANSFERASE 11 U/L (12-78); ALKALINE PHOSPHATASE 86 U/L (45-117); ANION GAP 7 mmol/L (5-15); BILIRUBIN,TOTAL 0.3 mg/dL (0.2-1.0); CREATININE 0.56 mg/dL (0.55-1.02); TOTAL PROTEIN 5.5 g/dL (6.4-8.2)
[2018-10-28 05:43] LABS: MEAN CORPUSCULAR HGB CONC 32.8 g/dL (32.4-35.8); MEAN CORPUSCULAR VOLUME 82.3 fL (80-100); MEAN PLATELET VOLUME 8.1 fL (7.4-10.4); PLATELET COUNT 413 x10^3/uL (130-400); RED BLOOD COUNT 4.22 x10^6/uL (3.82-5.3)
[2018-10-28 06:12] LABS: MD YES
[2018-10-28 06:14] LABS: BAND#(MANUAL) 0.23 x10^3/uL; BANDS%(MANUAL) 2 % (0-7); EOS#(MANUAL) 0.45 x10^3/uL (0.0-0.4); EOS% (MANUAL) 4 % (1-7); LYMPHS% (MANUAL) 23 % (22-44); METAMYELOCYTES# (MANUAL) 0.11 x10^3/uL (0-0); METAMYELOCYTES% (MANUAL) 1 % (0-1); MONOS#(MANUAL) 0.23 x10^3/uL (0.3-2.7); MONOS% (MANUAL) 2 % (2-9); SEG#(MANUAL) 7.68 x10^3/uL (1.8-6.8); SEGS% (MANUAL) 68 % (42-75)
[2018-10-28 06:15] LABS: <PLATELET ESTIMATE> INCREASED; <PLT MORPHOLOGY> NORMAL PLT MORPH; ANISOCYTOSIS 2+; HYPOCHROMIA 1+; MICROCYTOSIS 1+; OVALOCYTES 1+; POLYCHROMASIA 1+
[2018-10-28] MEDS: SIMETHICONE 125 MG CHEW TAB PO SCH ×4 (06:35→21:00)
[2018-10-28] MEDS: hydrALAzine 20 MG/ML, 1ML IV PRN (06:36)
[2018-10-28 07:53] VITALS: BP 120/66
[2018-10-28] MEDS: BUDESONIDE 0.5 MG/2 ML INHA NPPB SCH ×2 (09:00→22:09)
[2018-10-28] MEDS: SODIUM CHLORIDE FLUSH 10ML SYR IVF SCH ×2 (09:00→20:55)
[2018-10-28] MEDS: FAMOTIDINE 20 MG/2 ML IV SCH ×2 (09:16→21:02)
[2018-10-28] MEDS ORDERED: MAGNESIUM SULFATE PMX 2GM/50ML 50 ML IV ONE (11:30)
[2018-10-28 13:21] VITALS: BP 128/66
[2018-10-28 18:54] VITALS: BP 145/79
[2018-10-28] MEDS: ENOXAPARIN 40 MG/0.4 ML SQ SCH (21:26)
[2018-10-29] MEDS: hydrALAzine 20 MG/ML, 1ML IV PRN (04:53)
[2018-10-29 05:20] LABS: MEAN CORPUSCULAR HEMOGLOBIN 26.9 pg (27.0-34.8); MEAN CORPUSCULAR HGB CONC 32.8 g/dL (32.4-35.8); MEAN CORPUSCULAR VOLUME 82.2 fL (80-100); PLATELET COUNT 397 x10^3/uL (130-400); RED BLOOD COUNT 4.02 x10^6/uL (3.82-5.3)
[2018-10-29 05:22] LABS: ANION GAP 5 mmol/L (5-15); CALCIUM 8.2 mg/dL (8.5-10.1); CHLORIDE 107 mmol/L (98-107)
[2018-10-29 05:51] LABS: BASOPHILS # (AUTO) 0.06 x10^3/uL (0-0.1); BASOPHILS % (AUTO) 1 % (0-1); EOSINOPHILS # (AUTO) 0.76 x10^3/uL (0-0.4); EOSINOPHILS % (AUTO) 7 % (1-7); LYMPHOCYTES # (AUTO) 1.81 x10^3/uL (1-3.4); LYMPHOCYTES % (AUTO) 17 % (22-44); MD SCAN; MONOCYTES # (AUTO) 0.67 x10^3/uL (0.2-0.8); MONOCYTES % (AUTO) 6 % (2-9); NEUTROPHILS # (AUTO) 7.27 x10^3/uL (1.8-6.8); NEUTROPHILS % (AUTO) 69 % (42-75)
[2018-10-29] MEDS: SIMETHICONE 125 MG CHEW TAB PO SCH ×4 (06:12→20:49)
[2018-10-29] MEDS: BUDESONIDE 0.5 MG/2 ML INHA NPPB SCH ×2 (08:19→21:00)
[2018-10-29 08:46] VITALS: BP 155/65
[2018-10-29] MEDS: SODIUM CHLORIDE 0.45% 1,000 ML IV SCH ×2 (08:50→20:49)
[2018-10-29] MEDS: FAMOTIDINE 20 MG/2 ML IV SCH ×2 (09:12→20:48)
[2018-10-29] MEDS: SODIUM CHLORIDE FLUSH 10ML SYR IVF SCH ×2 (09:13→20:48)
[2018-10-29 12:02] VITALS: BP 142/76
[2018-10-29] MEDS: morphine SULFATE 10 MG/ML, 1ML IVPush PRN ×2 (13:47→14:35)
[2018-10-29 18:46] VITALS: BP 147/74
[2018-10-29] MEDS ORDERED: MAGNESIUM SULFATE PMX 2GM/50ML 50 ML IV ONE (20:00)
[2018-10-29] MEDS: ENOXAPARIN 40 MG/0.4 ML SQ SCH (21:39)
[2018-10-29 23:23] VITALS: BP 130/70
[2018-10-30 05:39] LABS: MEAN CORPUSCULAR HEMOGLOBIN 27.1 pg (27.0-34.8); MEAN CORPUSCULAR HGB CONC 33.3 g/dL (32.4-35.8); MEAN CORPUSCULAR VOLUME 81.4 fL (80-100); MEAN PLATELET VOLUME 7.5 fL (7.4-10.4); PLATELET COUNT 441 x10^3/uL (130-400); RED BLOOD COUNT 3.71 x10^6/uL (3.82-5.3)
[2018-10-30 05:47] LABS: ALBUMIN 2.2 g/dL (3.4-5.0); ANION GAP 4 mmol/L (5-15); CALCIUM 8.3 mg/dL (8.5-10.1); CHLORIDE 106 mmol/L (98-107)
[2018-10-30 05:51] LABS: ALANINE AMINOTRANSFERASE 10 U/L (12-78); ALKALINE PHOSPHATASE 82 U/L (45-117); BILIRUBIN,TOTAL 0.2 mg/dL (0.2-1.0); CREATININE 0.46 mg/dL (0.55-1.02); TOTAL PROTEIN 5.3 g/dL (6.4-8.2)
[2018-10-30 06:19] LABS: MD MORPH REVIEW ONLY
[2018-10-30 06:20] LABS: BASOPHILS # (AUTO) 0.06 x10^3/uL (0-0.1); BASOPHILS % (AUTO) 1 % (0-1); EOSINOPHILS # (AUTO) 0.95 x10^3/uL (0-0.4); EOSINOPHILS % (AUTO) 11 % (1-7); LYMPHOCYTES # (AUTO) 1.61 x10^3/uL (1-3.4); LYMPHOCYTES % (AUTO) 18 % (22-44); MONOCYTES # (AUTO) 0.68 x10^3/uL (0.2-0.8); MONOCYTES % (AUTO) 8 % (2-9); NEUTROPHILS # (AUTO) 5.54 x10^3/uL (1.8-6.8); NEUTROPHILS % (AUTO) 63 % (42-75)
[2018-10-30 06:21] LABS: ANISOCYTOSIS 2+; MICROCYTOSIS 1+
[2018-10-30 06:22] LABS: POLYCHROMASIA 1+
[2018-10-30 06:23] LABS: <PLATELET ESTIMATE> INCREASED; <PLT MORPHOLOGY> NORMAL PLT MORPH; OVALOCYTES 1+; TARGET CELLS 1+
[2018-10-30] MEDS: SIMETHICONE 125 MG CHEW TAB PO SCH ×2 (06:46→13:01)
[2018-10-30 08:49] VITALS: BP 138/57
[2018-10-30] MEDS: BUDESONIDE 0.5 MG/2 ML INHA NPPB SCH (09:07)
[2018-10-30] MEDS: FAMOTIDINE 20 MG/2 ML IV SCH (09:08)
[2018-10-30] MEDS ORDERED: FAMOTIDINE 20 MG TABLET ONE (09:09)
[2018-10-30] MEDS: SODIUM CHLORIDE FLUSH 10ML SYR IVF SCH (09:14)
[2018-10-30] MEDS ORDERED: FAMOTIDINE 20 MG TABLET PO SCH (09:30)
[2018-10-30] MEDS: SODIUM CHLORIDE 0.45% 1,000 ML IV SCH (13:00)
[2018-10-30 13:02] VITALS: BP 152/82
[2018-10-30] MEDS ORDERED: TRAM50TA2 PO (14:14)
== END 2018-10-30 15:40 | DRG 853 ==
LOC: ED 12:35 → EDIP 14:41 → CCU 19:32 → 4NOR 10-27 18:36
PROVIDERS: ADMIT Hospitalist; ATTEND Hospitalist
PROC: 04U50KZ Supplement Superior Mesenteric Artery with Nonautologous Tissue Substitute, Open Approach (ICD-10-PCS; 2018-10-23)
PROC: 04C50ZZ Extirpation of Matter from Superior Mesenteric Artery, Open Approach (ICD-10-PCS; 2018-10-23)
PROC: 047 Lower Arteries, Dilation (ICD-10-PCS; 2018-10-23)
PROC: B4141ZZ Fluoroscopy of Superior Mesenteric Artery using Low Osmolar Contrast (ICD-10-PCS; 2018-10-23)
PROC: 02HV33Z Insertion of Infusion Device into Superior Vena Cava, Percutaneous Approach (ICD-10-PCS; 2018-10-23)
PROC: B548ZZA Ultrasonography of Superior Vena Cava, Guidance (ICD-10-PCS; 2018-10-23)
PROC: 03HY32Z Insertion of Monitoring Device into Upper Artery, Percutaneous Approach (ICD-10-PCS; 2018-10-23)
PROC: 5A1945Z Respiratory Ventilation, 24-96 Consecutive Hours (ICD-10-PCS; 2018-10-23)
PROC: 0BH17EZ Insertion of Endotracheal Airway into Trachea, Via Natural or Artificial Opening (ICD-10-PCS; 2018-10-23)
PROC: 30233N1 Transfusion of Nonautologous Red Blood Cells into Peripheral Vein, Percutaneous Approach (ICD-10-PCS; 2018-10-23)
PROC: 0DNW0ZZ Release Peritoneum, Open Approach (ICD-10-PCS; 2018-10-23 18:00)
PROC: 0D9670Z Drainage of Stomach with Drainage Device, Via Natural or Artificial Opening (ICD-10-PCS; 2018-10-25)
PROC: 0JQ80ZZ Repair Abdomen Subcutaneous Tissue and Fascia, Open Approach (ICD-10-PCS; principal; 2018-10-25 10:30)
DX: A41.9 Sepsis, unspecified organism (principal); J96.00 Acute respiratory failure, unspecified whether with hypoxia or hypercapnia; G93.41 Metabolic encephalopathy; K55.021 Focal (segmental) acute infarction of small intestine; E46 Unspecified protein-calorie malnutrition; E11.43 Type 2 diabetes mellitus with diabetic autonomic (poly)neuropathy; E11.51 Type 2 diabetes mellitus with diabetic peripheral angiopathy without gangrene; E87.6 Hypokalemia; R54 Age-related physical debility; Z68.21 Body mass index [BMI] 21.0-21.9, adult; D50.9 Iron deficiency anemia, unspecified; E03.9 Hypothyroidism, unspecified; E78.00 Pure hypercholesterolemia, unspecified; E78.5 Hyperlipidemia, unspecified; E83.42 Hypomagnesemia; E86.0 Dehydration; F32.9 Major depressive disorder, single episode, unspecified; F41.9 Anxiety disorder, unspecified; G89.29 Other chronic pain; I10 Essential (primary) hypertension; I25.10 Atherosclerotic heart disease of native coronary artery without angina pectoris; J44.9 Chronic obstructive pulmonary disease, unspecified; K31.84 Gastroparesis; K59.09 Other constipation; K66.0 Peritoneal adhesions (postprocedural) (postinfection); M41.9 Scoliosis, unspecified; Z66 Do not resuscitate; Z96.641 Presence of right artificial hip joint; Z85.118 Personal history of other malignant neoplasm of bronchus and lung; Z87.891 Personal history of nicotine dependence; Z90.49 Acquired absence of other specified parts of digestive tract; Z90.710 Acquired absence of both cervix and uterus; Z95.1 Presence of aortocoronary bypass graft; Z88.2 Allergy status to sulfonamides; Z88.8 Allergy status to other drugs, medicaments and biological substances; Z88.6 Allergy status to analgesic agent; Z91.040 Latex allergy status
CPT/HCPCS: 36415; 36430; 36600; 71045; 74018; 74021; 74177; 75726; 80048; 80053; 81001; 82330; 82803; 82947; 82962; 83605; 83690; 83735; 84100; 84132; 84295; 84478; 85014; 85025; 85610; 85730; 86850; 86900; 86923; 87040; 87070; 87077; 87081; 87186; 87205; 93005; 94002; 94003; 94640; 96374; 96375; 96376; 99285; G0378; J1644; J1650; J1815; J2250; J2405; J2704; J2720; J3010; J3480; J7620; J7626; Q9967; C1757; C1765; C1768; C1769; C1876; J0330; J0360; J2270; J2370; J2765; J3475; J3490; J7030; J7040; J7050; J7121; P9016